=== PATIENT | female | born 1965 | race Caucasian/White ===

== ENCOUNTER 2019-07-09 00:55 | Outpatient (CLI) | payer BC, SELFPAY ==
--- NOTE | 2019-07-09 09:48 | DI.MAMMO_ITS ---
SYMPTOMS/DIAGNOSIS: SCREENING, Z12.31 MAMMOGRAM: Mammograms were interpreted according to the usual protocol including computer analysis with CAD system, tomosynthesis and C view imaging. The breasts are of moderate density with fairly symmetrical distribution of fibroglandular tissue. No dominant mass or clumped microcalcification is identified in either breast. The current examination is compared with previous examination of May 2013 and there is a question of increased prominence of a focal area of asymmetric density projected in the lateral central portion of the left breast on CC view. Additional mammographic views of this area are requested to include CC spot compression view of the left breast. CONCLUSION: Additional mammographic views of the left breast requested as described above. Breast ultrasound may be indicated as well depending on the results of the additional mammographic views. Category 0. Breast density Category B. MQSA ASSESSMENT OF FINDINGS: Incomplete: Needs additional imaging evaluation. Category 0. Patient will receive a letter notifying them of these results. BI-RADS category B. There are scattered areas of fibroglandular density.
[2019-07-09 10:31] LABS: Anion Gap 7.6 mmol/L (3-11); BUN 13 mg/dL (7-18); CO2 29.4 mmol/L (21.0-32.0); CREATININE 0.69 mg/dL (0.55-1.02); Calcium 9.1 mg/dL (8.5-10.1); Calculated LDL 202 mg/dL; Chloride 106 mmol/L (98-107); Cholesterol 284 mg/dL (50-200); Glucose 89 mg/dL (70-100); HDL Cholesterol 63 mg/dL (40-60); Potassium 4.5 mmol/L (3.5-5.1); Sodium 143 mmol/L (136-145); Triglyceride 98 mg/dL (30-150)
[2019-07-10 10:42] LABS: HIV-1/2 Ag & Ab Screen Negative (NEGAT)
== END 2019-07-09 01:15 ==
PROVIDERS: PCP Nurse Practitioner Family; Visit Provider Nurse Practitioner Family
DX: Z12.31 Encounter for screening mammogram for malignant neoplasm of breast (principal); R92.8 Other abnormal and inconclusive findings on diagnostic imaging of breast; I10 Essential (primary) hypertension; E78.5 Hyperlipidemia, unspecified; Z11.4 Encounter for screening for human immunodeficiency virus [HIV]
CPT/HCPCS: 36415; 77063; 77067; 80048; 80061; 83721; 87389

== ENCOUNTER 2019-07-13 09:06 | Outpatient (CLI) | payer BC, SELFPAY ==
[2019-07-13 10:00] LABS: ALT 28 U/L (12-78); AST 13 U/L (15-37); Albumin 3.6 g/dL (3.4-5.0); Alkaline Phosphatase 100 U/L (46-116); Bilirubin, Direct 0.05 mg/dL (0.00-0.20); Bilirubin, Total 0.2 mg/dL (0.2-1.0); Total Protein 6.9 g/dL (6.4-8.2)
== END 2019-07-13 09:26 ==
PROVIDERS: PCP Nurse Practitioner Family; Visit Provider Nurse Practitioner Family
DX: Z51.81 Encounter for therapeutic drug level monitoring (principal); Z79.899 Other long term (current) drug therapy
CPT/HCPCS: 36415; 80076

== ENCOUNTER 2019-07-21 01:05 | Outpatient (CLI) | payer BC, SELFPAY ==
--- NOTE | 2019-07-21 09:42 | DI.COMBO_ITS ---
SYMPTOM/DIAGNOSIS: F/U MAMMO, ? INCREASED PROMINENCE ASYMMETRIC DENSITY LATERAL CENTRAL PORTION ADDITIONAL MAMMOGRAPHIC VIEWS LEFT BREAST, LEFT BREAST ULTRASOUND 07/21 Additional images are interpreted according to the usual protocol including tomosynthesis and 2D imaging. Additional mammographic views of the left breast and left breast ultrasound are interpreted in conjunction. These examinations were obtained to evaluate questionable area of asymmetric density seen in the left breast on recent mammogram. Additional mammographic views failed to show a discrete mass. Breast ultrasound shows no evidence of a mass or cyst. CONCLUSION: No specific evidence of malignancy at this time. Follow up unilateral left breast mammogram requested in 6 months, Category 3. Breast density category B. MQSA ASSESSMENT OF FINDINGS: Probably benign. Six month follow-up recommended. Category 3. Patient will receive a letter notifying them of these results. BI-RADS category B. There are scattered areas of fibroglandular density.
== END 2019-07-21 01:25 ==
PROVIDERS: PCP Nurse Practitioner Family; Visit Provider Nurse Practitioner Family
DX: Z12.31 Encounter for screening mammogram for malignant neoplasm of breast (principal); R92.8 Other abnormal and inconclusive findings on diagnostic imaging of breast; N64.59 Other signs and symptoms in breast
CPT/HCPCS: 76642; 77063; 77067

== ENCOUNTER 2019-09-28 16:27 | Outpatient (CLI) | payer BC, SELFPAY ==
--- NOTE | 2019-09-28 11:15 | DI.RAD_ITS ---
EXAM: XR CHEST 2V PA LATERAL INDICATION: COUGH, ? PNEUMONIA. COMPARISON: CHEST 2 VIEWS PA,LAT from 07/15/2017 TECHNIQUE: 2D digital imaging was performed. FINDINGS: Heart size and pulmonary vasculature are within normal limits. The lungs are clear. No effusions or pneumothoraces are identified. The bones are intact. IMPRESSION: No acute pulmonary process.
== END 2019-09-28 16:47 ==
PROVIDERS: PCP Nurse Practitioner Family; Visit Provider Nurse Practitioner Family
DX: R05 Cough (principal)
CPT/HCPCS: 71046

== ENCOUNTER 2019-12-21 16:05 | Outpatient (CLI) | payer BC, SELFPAY ==
--- NOTE | 2019-12-21 15:19 | DI.RAD_ITS ---
EXAM: XR THUMB LT CLINICAL HISTORY: eval persistent L thumb pain TECHNIQUE: COMPARISON: No exams were available for comparison FINDINGS: Three views were obtained. There is mild thinning of the cartilaginous joint spaces at the greater m ultangular 1st metacarpal, 1st MCP, and IP joints. Mild marginal osteophyte formation noted most pro minent at the greater multangular 1st metacarpal joint. IMPRESSION: Mild degenerative changes, most prominent at greater multangular 1st metacarpal joint.
== END 2019-12-21 16:25 ==
PROVIDERS: PCP Nurse Practitioner Family; Visit Provider Student in an Organized Health Care Education/Training Program
DX: M79.645 Pain in left finger(s) (principal); M19.042 Primary osteoarthritis, left hand
CPT/HCPCS: 73140

== ENCOUNTER 2020-01-11 08:10 | Day surgery (SDC) | payer BC, SELFPAY ==
--- NOTE | 2020-01-11 07:05 | W.COLOREPORT ---
Date of service: 01/11/20 Time of Service: 09:19 Colonoscopy Report Date of procedure: 01/11/20 Pre-op diagnosis general: Colon Cancer Screening and Family history of colon cancer Procedure: Colonoscopy with polypectomy Surgeon: Halie Holcomb Anesthesia proc note operative: other (General/ ASA2 /Serenity Olvera, FATOUMATA) Estimated blood loss (mL): 3 Pathology: other (rectal polyps x4, sigmoid polyp) Complications: None Disposition: same day Indications: 54 y/o female with history of asthma and HTN presents for colonoscopy screening pre-op. She reports having a Colonoscopy a number of years ago, however she does not recall when or where this was performed. She denies a family history of colon cancer. She denies any changes in bowel habits including bloody or black tarry stools, abdominal pain, diarrhea or constipation Prep: Miralax/Dulcolax Procedure Start Time: :19 Procedure End Time: 09:58 Retraction Time: 25 minutes Findings: 4 small hyperplastic polyps in the rectum 1 small polyp in the sigmoid colon Thick mucus and bile/stool throughout the transverse and ascending colon Procedure Description: After informed consent was obtained the patient was taken to the procedure room and placed in a left decubitous position. Monitors were applied and a time out was done. The patients name, date of , procedure, allergies to medications and metal in their body was reviewed. The patient was then sedated. Once sedated and comfortable a rectal exam was done. External exam was normal. Internal exam revealed a normal sphincter tone and no palpable masses. The scope was then introduced and retro-flexed. No internal hemorrhoids were identified. The scope was then advanced to the cecum without difficulty. The TI and appendiceal orifice were identified. The prep was marginal in the ascending and trasnverse colon. There was a lot of thick bile and stool on the mucosa. 1.5 L of saline were used to irrigate the gomez. The scope was then slowly retracted over 25 minutes back into the rectum. Polyps were removed with cold forceps in the rectum x4 and in the sigmoid colon x1. There were no diverticula. The scope was removed and the patient was woken up and taken back to Same day surgery in stable condition. The patient tolerated the procedure well and there were no immediate complications. Follow up: The patient should follow up in 3-5 years unless they develop changes in bowel habits or other new gastrointestinal complaints.
--- NOTE | 2020-01-11 07:07 | PDOC.DSDIS_ITS ---
Discharge Plan Disposition Patient Disposition: HOME Condition: Good Discharge Details Reason For Visit: Colon CAncer Screening/ Family History of colon ca Attending Provider: Halie Holcomb Primary Care Provider: Ashanti Thakkar Home Meds and New Rx's Prescriptions: Continued atorvastatin 40 mg tablet 40 mg PO DAILY Qty: 90 RF: 3 albuterol sulfate [ProAir HFA] 90 mcg/actuation HFA aerosol inhaler 1 - 2 puff Inhalation Q4-6H PRN Qty: 1 RF: 3 venlafaxine 150 mg capsule,extended release 24hr 150 mg PO DAILY Qty: 90 RF: 3 trazodone 100 mg tablet 150 mg PO HS Qty: 135 RF: 3 hydrochlorothiazide 25 mg tablet 25 mg PO QAM Qty: 90 RF: 3 lisinopril 5 mg tablet 5 mg PO DAILY Qty: 90 RF: 3 ibuprofen 600 MG tablet 600 mg PO QID PRN (Reason: Pain) Qty: 15 RF: 0 Discontinued polyethylene glycol 3350 17 gram/dose powder 238 g PO ONCE Qty: 238 RF: 0 bisacodyl [Dulcolax (bisacodyl)] 5 mg tablet,delayed release (DR/EC) 5 mg PO ONCE Qty: 4 RF: 0 Discharge Instructions Additional Instructions: Findings: polyps x5 Follow up: 3-5 years Please call if you develop: fevers >101.5 Nausea or Vomiting Abdominal pain that is not transient DAY SURGERY UNIT POST ENDOSCOPY INSTRUCTIONS 1. Because there will be medication in your system for the next 24 hours, you may feel a little sleepy. Your coordination will be affected. Therefore: a. Do not drive or operate dangerous equipment for 24 hours. b. Do not drink alcohol beverages for 24 hours (not even beer). c. Plan to go home and rest for the day. 2. Generally there are no restrictions on your activity after a day or so has gone by, but you may feel a bit fatigued for a few days. 3 After you arrive home you may have a light meal and return to a normal diet as you can tolerate it without feeling sick to your stomach. 4. After surgery, you may feel pain or discomfort. This should be only transient, but if it persists please contact your doctor. 5. If there are any questions regarding the findings of your procedure, please feel free to contact your doctor. 6. If you are unable to contact your doctor with a problem, contact the [facility] at [phone]. 8. Continue all your regular medications unless directed otherwise. I understand the above instructions and have no questions. Signature of Patient or Responsible Adult Escort Date/Time Name of Responsible Adult Escort Signature of Nurse Date/Time Activity:: Activity as Tolerated Diet:: As Tolerated Discharge Orders Discharge Orders: Discharge Order (Routine); Ordered 01/11/20 Ordered By: Halie Holcomb
[2020-01-11 08:22] VITALS: BP 122/84; PULSE 105; RESP 16; TEMP 36.6; O2SAT 95
[2020-01-11] MEDS: Lactated Ringers 1,000 ML 80 ML IV (08:43)
--- NOTE | 2020-01-11 09:20 | BOWEL_PTH ---
PATIENT: Yanet Angel LOC: [facility] U#:[id number] AGE/SX: 54/F ROOM: RE01/11/[address]: Halie Holcomb MD : [id number] BED: DIS: 01/11/2020 SPEC #: [id number] RECD: 01/11/20 12:40 STATUS: EDGARDO REQ #: [id number] EMILIA: 01/11/20 09:[address]: Halie Holcomb DEPT: Surgical Specimen RECD BY: Sayra Ojeda ENTERED: 01/11/20 12:41 SP TYPE: Bowel OTHR DR: Ashanti Thakkar APRN Tissues: 1 - BIOPSY BOWEL 2 - BIOPSY BOWEL Procedures: GROSS AND MICRO LEVEL 4 Comments: [id number]
[2020-01-11 10:31] VITALS: BP 124/85; PULSE 78; RESP 16; TEMP 36.2; O2SAT 100
== END 2020-01-11 10:50 | disposition home or self-care (01) ==
LOC: SUR 08:11
PROVIDERS: PCP Nurse Practitioner Family; Visit Provider Surgery
PROC: 0DJD8ZZ Inspection of Lower Intestinal Tract, Via Natural or Artificial Opening Endoscopic (ICD-10-PCS; CPT 45378; principal; 2020-01-11 09:00)
DX: Z12.11 Encounter for screening for malignant neoplasm of colon (principal); K63.5 Polyp of colon; K62.1 Rectal polyp; I10 Essential (primary) hypertension; F17.210 Nicotine dependence, cigarettes, uncomplicated
CPT/HCPCS: 45380; 88305; J2704

== ENCOUNTER 2020-02-12 02:15 | Outpatient (CLI) | payer BC, SELFPAY ==
--- NOTE | 2020-02-12 09:00 | DI.MAMMO_ITS ---
EXAM: MG MAMMO DIAGNOSTIC UNI CLINICAL HISTORY: 6 MO F/U, F/U ABNL MAMMO. TECHNIQUE: Craniocaudal and mediolateral oblique Full Field Digital Mammography views of the left br east with Computer Aided Diagnosis followed. COMPARISON: Priors available for comparison. FINDINGS: Mammography/Tomosynthesis: Masses/Architectural Distortion: None seen. Microcalcifictions: No suspicious pleomorphic-type are seen. Skin Thickening/Nipple Retraction: None. IMPRESSION: 1. No evidence of malignancy is noted. 2. Unless there is more urgent need, follow-up screening mammography is recommended, as per [employer] guidelines. BI-RADS Cat 1 - Negative Breast Density - Category B - Scattered areas of fibroglandular density The findings were discussed with the patient on the date of the examination. A negative radiographic report should not delay biopsy if a dominant or clinically suspicious mass is present. Up to ten percent of cancers are not identified on mammography. A negative report may reinforce clinical impression. Adenosis and dense breasts may obscure an underlying neoplasm. False positive reports average 6 to 10%. Patient will receive a letter notifying them of these results.
== END 2020-02-12 02:35 ==
PROVIDERS: PCP Nurse Practitioner Family; Visit Provider Nurse Practitioner Family
DX: Z12.31 Encounter for screening mammogram for malignant neoplasm of breast (principal); R92.8 Other abnormal and inconclusive findings on diagnostic imaging of breast; N64.59 Other signs and symptoms in breast
CPT/HCPCS: 77061; 77065; G0279

== ENCOUNTER 2020-05-06 07:57 | Outpatient (CLI) | payer BC, SELFPAY ==
[2020-05-07 14:09] LABS: COVID-19 RT-PCR UVMMC Result Negative (Negative)
== END 2020-05-06 08:17 ==
PROVIDERS: PCP Nurse Practitioner Family; Visit Provider Student in an Organized Health Care Education/Training Program
DX: Z11.59 Encounter for screening for other viral diseases (principal); Z01.818 Encounter for other preprocedural examination
CPT/HCPCS: U0003

== ENCOUNTER 2020-05-10 12:34 | Day surgery (SDC) | payer BC, SELFPAY ==
[2020-05-10] VITALS (7 sets, daily range): BP systolic 117–165; BP diastolic 70–96; PULSE 77–98; RESP 10–18; TEMP 36.3–36.8; O2SAT 96–98
--- NOTE | 2020-05-10 11:05 | W.PM.DSUDISC ---
Discharge Plan Disposition Patient Disposition: HOME Condition: Good Discharge Details Reason For Visit: left CMC joint arthritis Attending Provider: Roni Valdes Primary Care Provider: Ashanti Thakkar Home Meds and New Rx's Prescriptions: New hydrocodone-acetaminophen 5-325 mg tablet 1 tab PO Q6H PRN (Reason: severe post-operative pain) Qty: 6 RF: 0 acetaminophen 500 mg tablet 500 mg PO Q6H PRN (Reason: pain) Qty: 60 RF: 2 ibuprofen 600 mg tablet 600 mg PO TID PRN (Reason: pain) Qty: 60 RF: 2 Continued atorvastatin 40 mg tablet 40 mg PO DAILY Qty: 90 RF: 3 albuterol sulfate [ProAir HFA] 90 mcg/actuation HFA aerosol inhaler 1 - 2 puff Inhalation Q4-6H PRN Qty: 1 RF: 3 venlafaxine 150 mg capsule,extended release 24hr 150 mg PO DAILY Qty: 90 RF: 3 trazodone 100 mg tablet 150 mg PO HS Qty: 135 RF: 3 hydrochlorothiazide 25 mg tablet 25 mg PO QAM Qty: 90 RF: 3 lisinopril 5 mg tablet 5 mg PO DAILY Qty: 90 RF: 3 ibuprofen 600 MG tablet 600 mg PO QID PRN (Reason: Pain) Qty: 15 RF: 0 Discharge Instructions Additional Instructions: Thumb CMC Discharge Instructions Activity: You should keep the hand/thumb elevated as much as possible for the first few days. You may use the other fingers as tolerated but avoid trying to do too much too soon. You may perform light activities with the splint in place. Dressing/Cast: Your splint should stay in place at all times. Do NOT get it wet. You may loosen the KEV wrap if you feel it is too tight and then rewrap more loosely. Medications: - You should take Tylenol and Ibuprofen for baseline pain control. - You have Oxycodone for breakthrough pain. - You may apply ice over the thumb. Follow-up: 10-14 days Referrals: Roni Valdes MD [ [facility] STAFF PHYSICIAN] - Equipment/Supplies: Splint Activity:: Elevate Remove Dressings/Wound Care:: Do Not Remove Shower/Bathe:: Cover Diet:: As Tolerated Discharge Orders Discharge Orders: Discharge Order (Routine); Ordered 05/10/20 Ordered By: Rupa Vyas DS: Diagnosis Discharge Diagnosis (1) Arthritis of carpometacarpal (CMC) joint of left thumb: Status: Acute
--- NOTE | 2020-05-10 12:00 | DI.RAD_ITS ---
EXAM: XR WRIST LT LIMITED CLINICAL HISTORY: Arthritis of carpometacarpal (CMC) joint of left t TECHNIQUE: 2D and realtime digital imaging was performed. CONTRAST MATERIAL: Refer to procedure report. COMPARISON: No exams were available for comparison FINDINGS: Fluoroscopy was provided for Dr. Valdes during the performance of a 1st CMC evaluation. Please re zainab to the procedure report for complete details. Fluoro time: 0.06 seconds IMPRESSION: RADIATION DOSE DELIVERED:
[2020-05-10] MEDS: Lactated Ringers 1,000 ML 80 ML IV (12:56)
[2020-05-10] MEDS: ceFAZolin 2 GM/50 ML BAG IVPB (13:28)
[2020-05-10] MEDS: oxyCODONE 5 MG TAB PO (15:43)
--- NOTE | 2020-05-10 20:04 | W.PM.OP ---
Date of service: 05/10/20 Time of Service: 14:04 Operative Note Operative Note DATE OF PROCEDURE: 05/10/20 PRE-OP DIAGNOSIS: Left Thumb CMC Arthritis POST-OP DIAGNOSIS: same PROCEDURE: Left trapezial resection arthroplasty with suture suspensionplasty SURGEON: Roni Valdes ANESTHESIA: GETTati ESTIMATED BLOOD LOSS: 0 PATHOLOGY: none sent TOURNIQUET TIME: 45 COMPLICATIONS: None Patient was transported to: PACU Patient's condition: stable Indications: Yanet is a 54-year old female who has had symptoms of thumb CMC arthritis with pain and decreased mobility. Nonoperative treatment options had been trialed. Given their failure, I offered operative intervention. I reviewed the technical details. I reviewed the risk of the procedure to include bleeding, infection, pain, stiffness, instability, subsidence, damage to neighboring arteries, damage to the superficial radial nerve, and weakness. Despite these risks, the patient elected to proceed. Findings: There is notable arthrosis between the trapezium and the first metacarpal. There are large osteophytes around the entirety of the trapezium. Procedure Description: Yanet was greeted in the preoperative holding area. Name and surgical site were confirmed. The history and physical was completed. The consent was reviewed the patient and signed. She was taken back to the operating room. The patient was administered a general anesthetic. The left was then prepped with ChloraPrep and draped in a standard fashion after a nonsterile tourniquet was placed high up onto the arm. Prophylactic antibiotics in the form of cefazolin were administered. A timeout was performed for safe surgery. The surgical site was drawn on the skin overlying the dorsal radial border of the wrist in the course of the first compartment tendons. The planned surgical field was anesthetized with 0.25% bupivacaine with epinephrine. The limb was exsanguinated and the tourniquet was inflated where it stayed for 45 minutes. A 3 cm incision was made longitudinally over the radial wrist from the level of the radial styloid to just past the base of the first metacarpal. The skin was incised only. The deep tissue and subcutaneous fat was dissected with a tenotomy scissors trying to protect branches of the superficial radial nerve. Any branches that were identified were retracted out of the way. The first compartment extensor tendons were then identified. The first extensor compartment was released with scissors. Any overlying structures were cleared and retracted away to make sure to avoid branches of the superficial radial nerve. The interval between APL and EPB was identified. The base of the first metacarpal was palpated. Gentle dissection was carried out to release attachments of the deep branch of the radial artery from the trapezium. A needle was placed into the joint between the first metacarpal and the trapezium. A single x-ray was used to confirm appropriate positioning. The capsule of the trapezium was then incised. The radial border of the bone was identified. Soft tissues around trapezium were dissected bluntly to allow relaxation of vital arterial structures traversing the trapezium. Using a Fairview blade the capsule was elevated off the trapezium in a subperiosteal fashion. Once it appeared to have all the capsular attachments released, the tap was removed. The trapezium was then removed using a rongeur. The wound was inspected to make sure all portions of the trapezium were removed. The wound was then thoroughly irrigated. Using a #2 FiberWire, I then performed a suture suspensionplasty. This was done by incorporating capsule and attachments of the APL at the base of the first metacarpal and creating a sling connected to the deep flexor carpi radialis tendon seen traversing deep within the wound towards the second metacarpal. This was done twice to create a crossing network of #2 suture. This was then tied making sure not to over tighten and hourglass the tendons. This provided support to the first metacarpal to prevent any excessive subsidence. The tourniquet was then released. There is no significant bleeding. The capsule of the trapezium was then reapproximated with a 2-0 Vicryl. The skin was closed with 3-0 Vicryl followed by 4-0 Monocryl. The hand was dressed with 4 x 4's, web roll, thumb spica splint. All counts were correct. Patient was transferred back to PACU in a stable condition.
== END 2020-05-10 16:20 | disposition home or self-care (01) ==
LOC: SUR 12:35
PROVIDERS: PCP Nurse Practitioner Family; Visit Provider Student in an Organized Health Care Education/Training Program
PROC: (CPT 25447; principal; 2020-05-10 14:15)
DX: M18.12 Unilateral primary osteoarthritis of first carpometacarpal joint, left hand (principal); M25.542 Pain in joints of left hand; I10 Essential (primary) hypertension; F17.210 Nicotine dependence, cigarettes, uncomplicated
CPT/HCPCS: 25447; 73100; J0131; J0690; J1100; J1885; J2001; J2405

== ENCOUNTER 2020-06-27 02:25 | Outpatient (CLI) | payer BC, SELFPAY ==
[2020-06-27 11:34] LABS: Anion Gap 13.3 mmol/L (3-11); BUN 14 mg/dL (7-18); CO2 23.7 mmol/L (21.0-32.0); CREATININE 0.69 mg/dL (0.55-1.02); Calcium 9.2 mg/dL (8.5-10.1); Calculated LDL 93 mg/dL (<100); Chloride 104 mmol/L (98-107); Cholesterol 188 mg/dL (<200); Glucose 88 mg/dL (74-106); HDL Cholesterol 69 mg/dL (40-60); Potassium 4.2 mmol/L (3.5-5.1); Sodium 141 mmol/L (136-145); Triglyceride 133 mg/dL (<150)
== END 2020-06-27 02:45 ==
PROVIDERS: PCP Nurse Practitioner Family; Visit Provider Nurse Practitioner Family
DX: E78.5 Hyperlipidemia, unspecified (principal); I10 Essential (primary) hypertension
CPT/HCPCS: 36415; 80048; 80061

== ENCOUNTER 2020-07-29 02:45 | Outpatient (CLI) | payer BC, SELFPAY ==
[2020-08-01 08:17] LABS: SARS-CoV-2 RNA Undetected (Undetected); SARS-CoV-2 Specimen Source Nasopharynx
== END 2020-07-29 03:05 ==
PROVIDERS: PCP Nurse Practitioner Family; Visit Provider Nurse Practitioner Family
DX: Z11.59 Encounter for screening for other viral diseases (principal)
CPT/HCPCS: U0003

== ENCOUNTER 2020-08-05 10:08 | Outpatient (CLI) | payer BC, SELFPAY ==
--- NOTE | 2020-08-05 11:41 | DI.RAD_ITS ---
EXAM: XR SHOULDER LT COMPLETE 2+V CLINICAL HISTORY: L shoulder pain. TECHNIQUE: 2D digital imaging was performed. COMPARISON: No exams were available for comparison FINDINGS: BONES: No acute fracture is present. No bony destructive lesion is seen. JOINTS: No dislocation present. Mild degenerative changes are seen at both the acromioclavicular join t and the glenohumeral joint. SOFT TISSUE: Normal. IMPRESSION: Mild degenerative changes of the AC and glenohumeral joints. DATA REPOSITORY: RADIATION DOSE DELIVERED:
== END 2020-08-05 10:28 ==
PROVIDERS: PCP Nurse Practitioner Family; Visit Provider Physician Assistant
DX: M19.012 Primary osteoarthritis, left shoulder (principal)
CPT/HCPCS: 73030

== ENCOUNTER 2020-11-01 00:59 | Outpatient (CLI) | payer BC, SELFPAY ==
--- NOTE | 2020-11-01 08:45 | DI.MRI_ITS ---
CLINICAL HISTORY: L SHOULDER PAIN,TENDONITIS LT ROTATOR CUFF,M75.82. TECHNIQUE: Multiplanar multisequence MRI was performed. COMPARISON: None FINDINGS: MR examination of the shoulder was performed according to the usual protocol. There is no significant effusion of the glenohumeral joint. No fluid in the subacromial subdeltoid bu rsa. Bones and labrum: There moderate osteophytes of the acromioclavicular joint and and abnormal signal i n the clavicle and acromion adjacent to the joint. There is mild impingement superior aspect of supr aspinatus. There are mild marginal osteophytes of the inferior glenoid. No other significant bony abnormality s een. Glenoid labrum shows question contour deformity superiorly, tear not excluded. Rotator cuff: Supraspinatus shows mildly abnormal signal from myotendinous junction region to its in sertion consistent with a tendinosis. Possible minimal linear tear anteriorly, intrasubstance. Tomás chment to the humerus appears intact. Infraspinatus and subscapularis show mildly abnormal signal near their humeral attachments consistent with tendinosis. No tear identified. Teres minor is unremarkable in appearance. Rotator interval structures are unremarkable with no evidence of a tear. Biceps tendon and anchor: Biceps tendon and anchor show normal signal and no evidence of a tear. Remedios ps tendon is normally positioned in the bicipital groove. IMPRESSION: Acromioclavicular joint hypertrophic changes with impingement on superior aspect of supraspinatus teresa tendinous junction region and associated supraspinatus tendinosis. Possible minimal linear intrasubs tance tearing of myotendinous junction region of the supraspinatus. Mild subscapularis and infraspinatus tendinosis without evidence of a tear. Question superior labral tear. DATA REPOSITORY:
== END 2020-11-01 01:19 ==
PROVIDERS: PCP Nurse Practitioner Family; Visit Provider Student in an Organized Health Care Education/Training Program
DX: M75.82 Other shoulder lesions, left shoulder (principal)
CPT/HCPCS: 73221

== ENCOUNTER 2021-02-01 09:36 | Outpatient (CLI) | payer BC, SELFPAY ==
[2021-02-02 13:21] LABS: COVID-19 RT-PCR UVMMC Result Positive (Negative)
== END 2021-02-01 09:37 | disposition home or self-care (01) ==
LOC: LBO 09:37
PROVIDERS: PCP Nurse Practitioner Family; Visit Provider Nurse Practitioner Family
DX: Z20.822 Contact with and (suspected) exposure to COVID-19 (principal)
CPT/HCPCS: U0003

== ENCOUNTER 2021-02-06 03:27 | Outpatient (CLI) | payer BC, SELFPAY ==
[2021-02-06 15:01] VITALS: BP 110/70; PULSE 74; RESP 16; TEMP 37; O2SAT 95
[2021-02-06] MEDS: Normal Saline 500 ML 30 ML IV (15:10)
[2021-02-06] MEDS: Normal Saline Flush 10 ML SYR IVP (15:10)
[2021-02-06 15:12] VITALS: BP 127/85; PULSE 92; RESP 14; TEMP 36.1; O2SAT 96
[2021-02-06 15:23] VITALS: BP 129/82; PULSE 90; RESP 20; TEMP 36.6; O2SAT 95
[2021-02-06 15:53] VITALS: BP 108/71; PULSE 77; RESP 16; TEMP 36.7; O2SAT 96
[2021-02-06 16:27] VITALS: BP 128/83; PULSE 88; RESP 18; TEMP 36.5; O2SAT 98
== END 2021-02-06 03:28 | disposition home or self-care (01) ==
PROVIDERS: PCP Nurse Practitioner Family; Visit Provider Family Medicine
DX: U07.1 COVID-19 (principal)
CPT/HCPCS: 96365

== ENCOUNTER 2021-03-29 08:57 | Day surgery (SDC) | payer BC, SELFPAY ==
[2021-03-29] VITALS (10 sets, daily range): BP systolic 104–136; BP diastolic 62–87; PULSE 82–107; RESP 13–21; TEMP 36–36.6; O2SAT 92–97; BMI 26.2
[2021-03-29] MEDS: Lactated Ringers 1,000 ML 80 ML IV (09:34)
--- NOTE | 2021-03-29 09:34 | W.ANESPRE ---
General Info Date of Service Date Performed: 03/29/21 Height: 5 ft 4.5 in Weight: 70.5 kg Body Mass Index (BMI): 26.2 Surgical Procedure: Operation Date: 03/29/21 13:10 Proposed Procedures Side Surgeon p Shoulder Arthroscopy with debridement, exc distal clavicle Left Roni Valdes MD s Shoulder Bicep Tenodesis Left Roni Valdes MD s Shoulder Distal Clavicle Roni Valdes MD Meds Allergies and Home Medications Allergies Allergy/AdvReac Type Severity Reaction Status Date / Time bupropion HCl AdvReac Intermediate Agitation Unverified 03/29/21 09:09 [From Wellbutrin] Home Medication Medication Instructions Recorded albuterol sulfate 90 mcg/actuation 1 - 2 puff INHALATION Q4-6H PRN #1 04/24/19 aerosol inhaler inhaler acetaminophen 500 mg PO Q6H PRN #60 tab 05/10/20 ibuprofen 600 mg PO TID PRN #60 tab 05/10/20 trazodone 100 mg tablet 150 mg PO HS #135 tab-cap 05/23/20 venlafaxine 150 mg 150 mg PO DAILY #90 tab-cap 05/23/20 capsule,extended release 24 hr atorvastatin 40 mg tablet 40 mg PO DAILY #90 tab-cap 06/17/20 hydrochlorothiazide 25 mg tablet 25 mg PO QAM #90 tab-cap 07/25/20 lisinopril 10 mg PO DAILY 02/06/21 Current Visit Medications: Current Medications Generic Name Dose Route Start Last Admin Trade Name Freq PRN Reason Stop Dose Admin Ringer's Solution 1,000 mls @ 80 mls/hr 03/29/21 06:00 IV 04/27/21 23:59 INFUSION MANUEL Cefazolin Sodium/Dextrose 2 gm in 50 mls @ 100 mls/hr 03/29/21 06:00 Ancef Duplex IVPB 04/27/21 23:59 PREOP MANUEL IV Miscellaneous Supplies 1 each 03/29/21 06:00 Iv Access IV 04/27/21 23:59 DIRECTED MANUEL Sodium Chloride 0 ml 03/29/21 06:00 Normal Saline Flush 10 Ml Syr IV 04/27/21 23:59 PRN PRN Sodium Chloride 0 ml 03/29/21 06:00 Normal Saline 10 Ml Vial IJ 04/27/21 23:59 DIRECTED PRN Sterile Water 0 ml 03/29/21 06:00 Water,Injection,Sterile 10 Ml Vial IJ 04/27/21 23:59 DIRECTED PRN PFSH Active Problems Active Problems: Problem Status Onset Code De Quervain's tenosynovitis, left M65.4 Tendonitis of left rotator cuff M75.82 Arthritis of left acromioclavicular joint M19.012 Superior labrum vhguspfh-wd-rfgjunwyy (SLAP) tear of left shoulder S43.432A Arthritis of carpometacarpal (CMC) joint of left thumb M18.12 Hyperplastic colon polyp K63.5 Asthma J45.909 Anxiety and depression F41.9, F32.9 Essential hypertension 08/31/16 I10 Other and unspecified hyperlipidemia 09/28/16 E78.5 Insomnia 08/31/16 G47.00 Tobacco use disorder F17.200 Medical History Medical History Anxiety and depression Asthma Essential hypertension (08/31/16) History of COVID-19 02/01/21 Hyperplastic colon polyp Insomnia (08/31/16) Other and unspecified hyperlipidemia (09/28/16) 07/2019 labs: LDL >190 --> started high intensity statin Tobacco use disorder Surgical History Surgical History Appendectomy (~1990) Arthritis of carpometacarpal (CMC) joint of left thumb Injected: 12/21/2019 Trapezial Resection: 05/10/2020 section x3 in 1986, 1989, & 1992 at [place] [facility] Cholecystectomy Endometriosis surgery x2 Dr. Perrin Hysterectomy, Total Abdominal (06/02/08) Dr. Nisa Orellana. For chronic pelvic pain & dysmenorrhea. Tobacco Smoking/Tobacco Use Status: Current every day Tobacco Type: cigarettes Smoking packs per day: 1 Smoking cigarettes per day: 20.0 Alcohol Alcohol Intake: current Alcohol intake frequency: 0-2 drinks per day Alcohol type: wine Substance Use Substance use: Never Substance use type: does not use Prental History History 3 Para Hx # Term Pregnancies 3 Multiple births Hx # Pregnancies Ectopic pregnancies AB induced Hx Number of Living Children 3 AB spontaneous Vital Signs and Lab Results Vital Signs Most Recent Vital Signs in EMR: Most Recent Vital Signs Temp Pulse Resp BP Pulse Ox 36.6 C 107 H 16 126/75 97 03/29/21 09:12 03/29/21 09:12 03/29/21 09:12 03/29/21 09:12 03/29/21 09:12 Lab Results Blood Type / Crossmatch: No Data to Display Complete Blood Count: White Blood Count 5.67 k/cumm (4.4-10.8) 07/15/17 16:20 07/15/17 Red Blood Count 4.83 m/cumm (4.00-5.20) 07/15/17 16:20 07/15/17 Hemoglobin 15.6 g/dL (12.0-15.5) H 07/15/17 16:20 07/15/17 Hematocrit 47.3 % (36.0-46.0) H 07/15/17 16:20 07/15/17 Platelet Count 233 x1000/uL (130-400) 07/15/17 16:20 07/15/17 Complete Metabolic Panel: Sodium Level 141 mmol/L (136-145) 06/27/20 10:06/27/20 Potassium Level 4.2 mmol/L (3.5-5.1) 06/27/20 10:06/27/20 Chloride Level 104 mmol/L (98-107) 06/27/20 10:06/27/20 Carbon Dioxide Level 23.7 mmol/L (21.0-32.0) 06/27/20 10:06/27/20 Blood Urea Nitrogen 14 mg/dL (7-18) 06/27/20 10:06/27/20 Creatinine 0.69 mg/dL (0.55-1.02) 06/27/20 10:06/27/20 Magnesium Level 2.0 mg/dL (1.8-2.4) 07/15/17 16:20 07/15/17 Calcium Level 9.2 mg/dL (8.5-10.1) 06/27/20 10:06/27/20 Albumin 3.6 g/dL (3.4-5.0) 07/13/19 09:19 07/13/19 Glucose Level 88 mg/dL (74-106) 06/27/20 10:28 06/27/20 Liver Function Panel: Alanine Aminotransferase (ALT/SGPT) 28 U/L (12-78) 07/13/19 09:19 07/13/19 Aspartate Amino Transf (AST/SGOT) 13 U/L (15-37) L 07/13/19 09:19 07/13/19 Coagulation Panel: D-Dimer 373 ng/mlFEU (0-500) 07/15/17 16:20 07/15/17 Cardiac Panel: Troponin I < 0.02 ng/mL (0.00-0.06) 07/15/17 16:20 07/15/17 Arterial Blood Gas: No Data to Display Venous Blood Gas: No Data to Display Pancreas Panel: Amylase Level 25 U/L (25-115) 10/12/13 13:33 10/12/13 Lipase 73 U/L (73-393) 10/12/13 13:33 10/12/13 Thyroid Panel: Thyroid Stimulating Hormone (TSH) 1.49 uUIU/mL (0.358-3.74) 12/27/17 15:15 12/27/17 Infectious Disease: Coronavirus (COVID-19)(PCR) Positive (Negative) A* 02/01/21 10:59 02/01/21 HIV (1&2) Ag and Ab, 4th Generation Negative (NEGAT) 07/09/19 09:07 07/09/19 Hepatitis B Surface Antigen Negative (Negative) 10/14/13 14:47 10/14/13 Blood Cultures: No Data to Display Toxicology Panel: Urine Methadone Screen neg 03/19/18 15:30 03/19/18 Panel: No Data to Display Anesthesia Assessment and Plan Anesthesia History Personal History: No History of Anesthesia Complications Family History: No Family History of Anesthesia Complications Exercise Tolerance Exercise Tolerance: Metabolic Equivalents>4 Pertinent Negatives Pertinent Negatives: No Symptoms of GERD, No Major Cardiovascular Symptoms or Complaints, No Major Pulmonary Symptoms or Complaints and No History of CVA/TIA Cardiac & Pulmonary Exam Cardiac Exam: Normal S1/S2 Heart Sounds Pulmonary Exam: Clear Bilateral Breath Sounds Airway Exam Known Difficult Airway: No Mallampati Class: 1 Mouth Opening: Normal (> 3cm) Thyromental Distance: Greater than 3 cm Neck Range of Motion: Full ROM Neck Circumference: Normal Teeth Condition: Normal Dentition and Loose or Chipped (#21 chipped) ASA Classification ASA Score: ASA 2 ASA Emergency: No NPO Status NPO Status: NPO Clears >2 hours, Solids >8 hours Status Status: History of Hysterectomy Anesthesia Plan Anesthesia Technique: General Anesthesia Airway Planned: Endotracheal Tube Pain Management: Surgeon and patient request nerve block Monitors Used: Standard Monitors
--- NOTE | 2021-03-29 12:01 | W.PM.DSUDISC ---
Discharge Plan Disposition Patient Disposition: HOME Condition: Good Discharge Details Reason For Visit: Left shoulder arthroscopy Attending Provider: Roni Valdes Primary Care Provider: Ashanti Thakkar Home Meds and New Rx's Prescriptions: New oxycodone 5 mg capsule 5 mg PO Q4H PRNQty: 14 RF: 0 ibuprofen 600 mg tablet 600 mg PO TID PRN (Reason: pain) Qty: 30 RF: 0 acetaminophen 500 mg capsule 1,000 mg PO Q8H PRN PRNQty: 90 RF: 0 Continued atorvastatin 40 mg tablet 40 mg PO DAILY Qty: 90 RF: 3 albuterol sulfate [ProAir HFA] 90 mcg/actuation HFA aerosol inhaler 1 - 2 puff Inhalation Q4-6H PRN Qty: 1 RF: 3 trazodone 100 mg tablet 150 mg PO HS Qty: 135 RF: 3 venlafaxine 150 mg capsule,extended release 24hr 150 mg PO DAILY Qty: 90 RF: 3 hydrochlorothiazide 25 mg tablet 25 mg PO QAM Qty: 90 RF: 3 lisinopril 5 mg tablet 10 mg PO DAILY RF: 0 Discontinued acetaminophen 500 mg tablet 500 mg PO Q6H PRN (Reason: pain) Qty: 60 RF: 2 ibuprofen 600 mg tablet 600 mg PO TID PRN (Reason: pain) Qty: 60 RF: 2 Discharge Instructions Stand Alone Forms: Lucio Amezcua w/BT Referrals: Roni Valdes MD [ [facility] STAFF PHYSICIAN] - Equipment/Supplies: Sling Activity:: Elevate Remove Dressings/Wound Care:: 72 hours Shower/Bathe:: 72 hours Diet:: As Tolerated Discharge Orders Discharge Orders: Discharge Order (Routine); Ordered 03/29/21 Ordered By: Liu Hyatt DS: Diagnosis Discharge Diagnosis (1) Tendonitis of left rotator cuff: Status: Acute (2) Arthritis of left acromioclavicular joint: Status: Acute (3) Superior labrum thpvqlxb-ju-qvcchmuyz (SLAP) tear of left shoulder: Status: Acute
[2021-03-29] MEDS: ceFAZolin 2 GM/50 ML BAG IVPB (12:25)
--- NOTE | 2021-03-29 12:56 | W.ANESNERVE ---
Nerve Block Single Injection Procedure Date and Time Date Performed: 03/29/21 Procedure Start: 12:12 Location Where Procedure Performed Procedure Location: Other (Procedure Room) Reason Performed: Postoperative Analgesia Requesting Provider: Roni Valdes Timeout Performed Timeout Performed: Yes Monitoring Used ECG, Blood Pressure, SpO2 and See EMR for corresponding vital signs Sterility Sterility: Hand Hygiene, Surgical Cap, Surgical Mask, Sterile Gloves and Chlorhexidine Sedation Given During Procedure Sedation Given (Indicate Dose Given): Versed IV (2 mg) and Ketamine IV (20mg) Patient Mental Status Patient Mental Status: Sedate with meaningful communication Nerve Block 1st Nerve Block: Laterality: Left Block Type: Interscalene Needle / Catheter Used: 80mm SonoPlex II Local Anesthetic Bolus (Indicate Dose Given): Lidocaine used for local infiltration of skin, Bupivacaine 0.5% (10 ml) and Exparel (10 ml) Additives (Indicate Dose Given): None Ultrasound: Sterile probe cover and gel used Ultrasound Image Saved?: Yes Nerve Stimulator: Not Used Paresthesia: Left (prior to injection, needle repositioned ) Paresthesia Duration: Transient Procedure Tolerated: No Complications and Patient tolerated well Procedure Outcome: Successful Performed By: Jo Ann Islas
[2021-03-29] MEDS: Bupivacaine 0.25% Pres-Free 30 ML VIAL (13:25)
[2021-03-29] MEDS: EPINEPHrine 30 MG/30 ML VIAL (13:25)
--- NOTE | 2021-03-29 14:20 | W.PM.OP ---
Date of service: 03/29/21 Time of Service: 13:45 Operative Note Operative Note DATE OF PROCEDURE: 03/29/21 PRE-OP DIAGNOSIS: Left Rotator Cuff Tendinitis, SLAP Tear, AC Arthritis POST-OP DIAGNOSIS: same PROCEDURE: - Mini-Open Distal Clavicle Excision - Extensive debridement of anterior and posterior glenohumeral joint and rotator cuff - Sub-pectoral biceps tenodesis - Subacromial Debridement with Acromioplasty SURGEON: Roni Valdes ACQUISITIONS LIBRARIAN: Liu Hyatt ANESTHESIA TYPE: General LMA/ETT Refer to Anesthesia Record ESTIMATED BLOOD LOSS: 0 PATHOLOGY: none sent COMPLICATIONS: None Patient was transported to: PACU Patient's condition: stable Indications: I have seen Yanet in clinic for a painful shoulder. Pathology was confirmed based on MRI and exam findings. Nonoperative measures were exhausted but disability and pain persisted. I discussed shoulder arthroscopy and procedures. I reviewed the risks of the procedures to include, but not limited to, bleeding, infection, pain, stiffness, damage to nerves or vessels, recurrence, hardware failure, blood clot. Despite these risks, the patient elected to proceed. Findings: There were signs of arthrosis of the distal clavicle; a 1cm wedge was resected A diagnostic arthroscopy was performed with the following findings: Articular Side - Glenohumeral Joint: No arthritic changes - Labrum: Tearing of the labrum from the superior glenoid - Cuff: Minimal fraying at the insertion of supraspinatus (~1mm) - Biceps: Mild inflammatory changes, no tearing Subacromial Side - Bursal: Dense, thickened bursa - Rotator Cuff: Inflamed but intact - Mild anterolateral spur Procedure Description: Yanet was greeted in the preoperative holding area where the correct side was identified and marked. The consent was reviewed with the patient and signed. The history and physical was updated. All questions were answered. She was taken back to the PACU for administration of an intrascalene nerve block. She was then taken to the operating room. The patient was placed into the supine position on the operating room table. A general anesthetic was administered. Yanet was then positioned in the beach chair position. All bony prominences were well padded. The head was placed in a foam trailhead maintenance worker in a neutral position. Prophylactic antibiotics in the form of cefazolin were administered. The left arm/shoulder was then prepped with Chloraprep and draped in a standard fashion with stockinette and shoulder drape. A timeout to confirm correct identity, side and site, procedure, allergies, anesthesia, and medical concerns was performed. The arm was placed into a pneumatic heart, SPIDER2. The distal clavicle was approached through a 2 and half centimeter incision within Morena's lines. This was made overlying the AC joint. The skin was incised sharply. The deeper tissues dissected with electrocautery. The clavipectoral fascia was identified and incised longitudinally off of the distal clavicle and onto the acromion. This was reflected subperiosteally to expose the distal clavicle and the AC joint. With adequate exposure a 1 cm bony resection was made using an oscillating saw. This is angled posteriorly to avoid any posterior impingement. Once it was fully resected, it was inspected to make sure it is of adequate width. A rasp was used to smooth the bony edges inferiorly and posteriorly primarily. A small amount of bone wax was placed on the end of the distal clavicle. The wound was thoroughly irrigated. There is no active bleeding. The clavipectoral fascia was then closed with a 0 Vicryl in a watertight fashion. The subcutaneous tissues were then reapproximated with a 2-0 Vicryl. The shoulder arthroscopy was then performed. The glenohumeral joint was injected with 20 cc of normal saline with good flow back. A standard posterior portal was made and the joint was entered atraumatically with a blunt arthroscope. Once inside we had good visualization of the structures of the glenohumeral joint. An anterior portal was established with spinal needle localization. A 6.5 mm cannula was inserted. A probe was then used to perform a diagnostic arthroscopy. There is noted to be no significant cartilage damage of the glenohumeral joint. The labrum was torn from its attachment of the superior glenoid. There were no loose bodies in the inferior pouch. The superior rotator cuff was attached to the tuberosity with very minimal amounts of fraying of the articular attachment. The biceps tendon had mild inflammatory changes but was directly attached to the torn labrum. The subscapularis was intact. Debridement of the labrum was performed. I also debrided the superior glenoid from anterior to posterior to allow some attachment of the labrum. The biceps was tenotomized using electrocautery. The insertion of the supraspinatus was lightly debrided back to healthy-appearing tissue. The biceps tenodesis was then performed. With the arm and some slight external rotation abduction pectoralis major tendon was identified. A 2 cm incision was made overlying the insertion to the humerus. Sharp dissection was carried onto the skin. Blunt dissection was carried down to the fascia the biceps musculature. This was entered with a tenotomy scissors. The biceps groove was palpable and the biceps tendon was palpable. It was withdrawn from the wound using Allis clamp and finger dissection. Once the biceps tendon was out of the arm the biceps groove was prepared using a rasp. A Mitek Lupine anchor was inserted into the biceps groove at the level of the pectoralis major insertion. This was tested to make sure had excellent fixation into the bone. Using a free needle I then placed a locking Krak?w stitch and each side of the biceps tendon using one limb from each suture at the level of the muscular tendinous junction and moving proximally. Excess tendon was then cut. Using the free suture limb I then shuttled the tendon down to the prepared surface of the humerus. It laid flat against the humerus. It was at the level of the pectoralis major tendon. The suture limbs were then tied. The wound was irrigated. The subcutaneous tissue was reapproximated with a 2-0 Vicryl. The arthroscope was then inserted into the subacromial space. The 6.5 mm cannula was placed lateral to the CA ligament. Given that there was no significant tearing of the rotator cuff I went ahead and release the CA ligament off the anterolateral corner of the acromion. A complete bursectomy is performed anteriorly, posteriorly, and laterally with electrocautery and shaver. The bursa was quite thickened and dense in this area. After a complete bursectomy, I had excellent exposure of the rotator cuff. The bursal side rotator cuff was without any significant tearing that was appreciated. There was a small anterolateral spur. Using a spinal needle a lateral portal was established. This became the viewing portal. A 4.0 mm shaver was then inserted from the posterior portal. The anterolateral corner of the acromion was then resected in plane with the posterior slope of the acromion. The scope equipment was removed from the shoulder. Excess fluid was evacuated. The portal sites were closed with 3-0 Monocryl. The wounds were dressed with Steri-Strips, 4 x 4's, ABDs, Medipore tape. A sling was applied. The patient tolerated the procedure well and was returned to the PACU in a stable condition suffering no known complication.
[2021-03-29] MEDS: Acetaminophen 325 MG TAB 650 MG PO (15:42)
--- NOTE | 2021-03-29 15:55 | W.ANESPOSTOP ---
Postoperative Evaluation Date, Time and Location Date Performed: 03/29/21 Time Performed: 15:56 Patient Location: Day Surgery Unit Vital Signs Most Recent Imported Vital Signs: Most Recent Vital Signs Temp Pulse Resp BP Pulse Ox 36.2 C L 91 H 16 130/87 93 03/29/21 15:30 03/29/21 15:30 03/29/21 15:30 03/29/21 15:30 03/29/21 15:30 Pain Score Most Recent Pain Score: Most Recent Pain Score Pain Level 5 03/29/21 15:30 Assessment Mental Status: Awake (Alert & Oriented to Patient Baseline) Airway and Respiratory Function: Patent airway with normal (patient baseline) respiratory exam Cardiovascular Function: Hemodynamically Stable Hydration Status: Adequately Hydrated Nausea & Vomiting: No Nausea or Vomiting Pain: Pain is tolerable/mild (<5/10) Peripheral Nerve Block: Regional nerve block not resolved at time of post operative discharge Teaching Patient Teaching: Discussed Safe Use of Pain Medication Given Recent Anesthesia
== END 2021-03-29 16:30 | disposition home or self-care (01) ==
PROVIDERS: PCP Nurse Practitioner Family; Visit Provider Student in an Organized Health Care Education/Training Program
PROC: (CPT 29805; principal; 2021-03-29 13:00)
PROC: (CPT 23430; 2021-03-29 13:00)
PROC: (CPT 23120; 2021-03-29 13:00)
DX: M19.012 Primary osteoarthritis, left shoulder (principal); S43.432A Superior glenoid labrum lesion of left shoulder, initial encounter; M75.82 Other shoulder lesions, left shoulder; M75.102 Unspecified rotator cuff tear or rupture of left shoulder, not specified as traumatic; J45.909 Unspecified asthma, uncomplicated; F17.210 Nicotine dependence, cigarettes, uncomplicated; F41.8 Other specified anxiety disorders; I10 Essential (primary) hypertension
CPT/HCPCS: 29828; 23120; 29823; 76942; J0690; J1100; J1885; J2001; J2250; J2370; J2405; J2704; J3010

== ENCOUNTER 2021-10-27 02:49 | Outpatient (CLI) | payer BC, SELFPAY ==
[2021-10-27 09:03] LABS: ALT 48 U/L (14-59); AST 31 U/L (15-37); Albumin 3.9 g/dL (3.4-5.0); Alkaline Phosphatase 112 U/L (46-116); Anion Gap 11.2 mmol/L (3-11); BUN 17 mg/dL (7-18); Bilirubin, Total 0.5 mg/dL (0.2-1.0); CO2 27.8 mmol/L (21.0-32.0); CREATININE 0.7 mg/dL (0.55-1.02); Calculated LDL 94 mg/dL (<100); Chloride 103 mmol/L (98-107); Cholesterol 193 mg/dL (<200); Glucose 92 mg/dL (74-106); HDL Cholesterol 77 mg/dL (40-60); Potassium 3.9 mmol/L (3.5-5.1); Sodium 142 mmol/L (136-145); Total Protein 7.1 g/dL (6.4-8.2); Triglyceride 112 mg/dL (<150)
== END 2021-10-27 02:50 | disposition home or self-care (01) ==
LOC: LBO 02:49
PROVIDERS: PCP Nurse Practitioner Family; Visit Provider Nurse Practitioner Family
DX: I10 Essential (primary) hypertension (principal); E78.5 Hyperlipidemia, unspecified; Z13.1 Encounter for screening for diabetes mellitus
CPT/HCPCS: 36415; 80053; 80061

== ENCOUNTER 2022-04-06 01:19 | Outpatient (CLI) | payer BC, SELFPAY ==
--- NOTE | 2022-04-06 06:41 | DI.MAMMO_ITS ---
Exam(s) MAMMO SCREENING EXAM: MAMMO SCREENING CLINICAL HISTORY: screening,Z12.39. TECHNIQUE: Bilateral full field digital CC and MLO mammographic images were obtained with 3D tomosyn thesis and utilizing computer aided detection (CAD). COMPARISON: Prior mammograms were reviewed, the most recent being January 2020. FINDINGS: There has been no significant change in the appearance and distribution of the fibroglandular tissue. There are no CAD designations. There are no new spiculated masses nor malignant appearing microcalcification groups. Benign-appearing nodules laterally in the right breast are unchanged. There is no significant architectural distortion nor skin thickening-retraction. IMPRESSION: No radiographic evidence of malignancy. BI-RADS Category 1 - Negative Breast Density - Category B - Scattered areas of fibroglandular density Breast density Category C or D implies that the patient has dense breast tissue. Dense breast tissue can make it harder to find cancer on a mammogram. Dense breast tissue is also associated with an incr eased risk of breast cancer. This information about the result of the mammogram report was provided to the patient to raise their awareness. Use this report when you speak with the patient about their risks for breast cancer, which includes their family history. At that time, you may recommend additional screening tests (Ultrasoun d or MRI) as these tests may add significant information. A negative radiographic report should not delay biopsy if a dominant or clinically suspicious mass is present. Up to ten percent of cancers are not identified on mammography. A negative report may reinforce clinical impression. Adenosis and dense breasts may obscure an underlying neoplasm. False positive reports average 6 to 10%. Patient will receive a letter notifying them of these results.
== END 2022-04-06 01:39 ==
PROVIDERS: PCP Nurse Practitioner Family; Visit Provider Nurse Practitioner Family
DX: Z12.31 Encounter for screening mammogram for malignant neoplasm of breast (principal)
CPT/HCPCS: 77063; 77067

== ENCOUNTER 2022-09-14 12:20 | Outpatient (REF) | payer BC, SELFPAY ==
[2022-09-16 10:42] LABS: COVID-19 RT-PCR UVMMC Result Positive (Negative)
== END 2022-09-14 12:21 | disposition home or self-care (01) ==
LOC: LBN 12:20
PROVIDERS: PCP Nurse Practitioner Family; Visit Provider Nurse Practitioner Family
DX: J98.8 Other specified respiratory disorders (principal); R05.9 Cough, unspecified; Z20.822 Contact with and (suspected) exposure to COVID-19
CPT/HCPCS: U0003

== ENCOUNTER 2023-01-23 07:22 | Emergency (ER) | payer BC, SELFPAY ==
[2023-01-23 07:24] VITALS: BP 105/73; PULSE 89; RESP 16; TEMP 35.8; O2SAT 98
--- NOTE | 2023-01-23 07:45 | DI.RAD_ITS ---
Exam(s) XR FOOT RT COMPLETE EXAM: XR FOOT RT COMPLETE CLINICAL HISTORY: inverted 1.5 wk ago, pain medial navicular. TECHNIQUE: 2D digital imaging was performed of the right foot. Three images were obtained. AP, obl ique and lateral views were obtained. COMPARISON: No exams were available for comparison FINDINGS: BONES: No acute fracture is present. No bony destructive lesion is seen. JOINTS: No dislocation present. Degenerative changes are seen at the 1st MTP joint with joint space n arrowing and bony hypertrophy. SOFT TISSUE: Normal. IMPRESSION: No acute fracture or dislocation. DATA REPOSITORY: RADIATION DOSE DELIVERED:
--- NOTE | 2023-01-23 07:54 | ED.GENADUL_ITS ---
Discharge Plan Disposition Patient Disposition: Home Condition: Stable Discharge Details Clinical Impression: Right foot sprain Primary Care Provider: Ashanti Thakkar ED Provider: Javier Perez Home Meds and New Rx's Prescriptions: Continued cyclobenzaprine 10 mg tablet 10 mg PO TID PRN (Reason: muscle spasm) Qty: 30 0RF albuterol sulfate [ProAir HFA] 90 mcg/actuation HFA aerosol inhaler 1 - 2 puff Inhalation Q4-6H PRN Qty: 1 3RF Rx Instructions: DISPENSE ALBUTEROL INHALER BRAND COVERED BY INSURANCE venlafaxine 150 mg capsule,extended release 24hr 150 mg PO DAILY Qty: 90 3RF lisinopril 5 mg tablet 5 mg PO DAILY Qty: 90 3RF atorvastatin 40 mg tablet 40 mg PO DAILY Qty: 90 3RF hydrochlorothiazide 25 mg tablet 25 mg PO QAM Qty: 90 3RF trazodone 100 mg tablet 200 mg PO HS PRN (Reason: insomnia) Qty: 180 3RF fluconazole 150 mg tablet 150 mg PO ONCE Qty: 1 0RF Rx Instructions: as a single dose ibuprofen 600 mg tablet 600 mg PO TID PRN (Reason: pain) Qty: 30 0RF acetaminophen 500 mg capsule 1,000 mg PO Q8H PRN PRNQty: 90 0RF Discharge Instructions Instructions: Foot Sprain (ED) Additional Instructions: Please use orthopedic boot and crutches. Weight-bear as tolerated. Please follow-up with orthopedic surgery. You may need additional diagnostic imaging if pain does not improve over the next few days with splinting and crutches. Return to the emergency department immediately for any worsening or new concerning symptoms. Stand Alone Forms: Work Release Referrals: [facility] [Provider Group] Ashanti Thakkar NP [Primary Care Provider] - Medical Decision Making 57-year-old female here 1-1/2 weeks after inverting her ankle with pain in her medial midfoot, worse with ambulation and flexion. Patient is tender over her navicular medially. No other tenderness. Ibuprofen was given for pain. X-ray of the right foot was reviewed and interpreted by radiology: negative per Dr. Brennan Duran orthopedic ankle foot boot applied for splinting. Crutches provided. Patient was instructed to weight-bear as tolerated. Plan for follow-up with orthopedics. HPI General Mode of arrival: ambulatory . Date/Time Provider Initiated Documentation: 01/23/23 07:43 . Limitations to Documentation: no limitations . Information obtained by: patient . HPI Narrative: 57-year-old female presents with chief complaint of right foot pain. Patient notes about a week and a half ago she inverted her right ankle. She has had pain in her proximal medial right foot since the injury. She has pain is worse with ambulation and flexion. She denies ankle pain. No other injury. Related Data Home Medications Medication Instructions Recorded Confirmed albuterol sulfate 90 mcg/actuation 1 - 2 puff inhalation Q4-6H PRN ##1 04/24/19 01/23/23 aerosol inhaler (ProAir HFA) acetaminophen 500 mg capsule 1,000 mg PO Q8H PRN PRN #90 caps 03/29/21 01/23/23 ibuprofen 600 mg tablet 600 mg PO TID PRN pain #30 tabs 03/29/21 01/23/23 cyclobenzaprine 10 mg tablet 10 mg PO TID PRN muscle spasm #30 11/08/21 01/23/23 tab-caps venlafaxine 150 mg 150 mg PO DAILY #90 tab-caps 05/22/22 01/23/23 capsule,extended release 24 hr lisinopril 5 mg tablet 5 mg PO DAILY #90 tabs 08/23/22 01/23/23 atorvastatin 40 mg tablet 40 mg PO DAILY #90 tabs 10/18/22 01/23/23 hydrochlorothiazide 25 mg tablet 25 mg PO QAM #90 tab-caps 10/18/22 01/23/23 trazodone 100 mg tablet 200 mg PO HS PRN insomnia #180 10/18/22 01/23/23 tab-caps fluconazole 150 mg tablet 150 mg PO ONCE #1 tab 11/20/22 01/23/23 Previous Rx's Medication Instructions Recorded albuterol sulfate 90 mcg/actuation 1 - 2 puff inhalation Q4-6H PRN ##1 04/24/19 aerosol inhaler (ProAir HFA) acetaminophen 500 mg capsule 1,000 mg PO Q8H PRN PRN #90 caps 03/29/21 ibuprofen 600 mg tablet 600 mg PO TID PRN pain #30 tabs 03/29/21 cyclobenzaprine 10 mg tablet 10 mg PO TID PRN muscle spasm #30 11/08/21 tab-caps venlafaxine 150 mg 150 mg PO DAILY #90 tab-caps 05/22/22 capsule,extended release 24 hr lisinopril 5 mg tablet 5 mg PO DAILY #90 tabs 08/23/22 atorvastatin 40 mg tablet 40 mg PO DAILY #90 tabs 10/18/22 hydrochlorothiazide 25 mg tablet 25 mg PO QAM #90 tab-caps 10/18/22 trazodone 100 mg tablet 200 mg PO HS PRN insomnia #180 10/18/22 tab-caps fluconazole 150 mg tablet 150 mg PO ONCE #1 tab 11/20/22 Allergies Allergy/AdvReac Type Severity Reaction Status Date / Time bupropion HCl AdvReac Intermediate Agitation, Verified 01/23/23 07:30 [From Wellbutrin] nausea General Stated Complaint: Orthopedic WANDA: 4 Review of Systems Musculoskeletal Musculoskeletal: Reports as per HPI PFSH All Active Problems (Updated 01/23/23 @ 08:51 by Javier Perez MD) Right foot sprain (Acute) Arthritis of carpometacarpal (CMC) joint of left thumb (Chronic) Injected: 12/21/2019; Trapezial Resection: 05/10/2020 Asthma (Chronic) Anxiety and depression (Chronic) Essential hypertension (Chronic 08/31/16) Other and unspecified hyperlipidemia (Chronic 09/28/16) 07/2019 labs: LDL >190 --> started high intensity statin Insomnia (Chronic 08/31/16) Tobacco use disorder (Chronic) Medical History COVID-19 (~01/2021) De Quervain's tenosynovitis, left Hyperplastic colon polyp Surgical History Cholecystectomy Endometriosis surgery x2 Dr. Perrin History of appendectomy (~1990) History of section x3 in 1986, 1989, & 1992 at [facility] Hysterectomy, Total Abdominal (06/02/08) Dr. Nisa Orellana. For chronic pelvic pain & dysmenorrhea. Status post arthroscopy of left shoulder (03/29/21) s/p distal clavicle excision, extensive debridement, biceps tenodesis, acromioplasty Family History Mother Arthritis Mental disorder Anxiety Father , [place] at age 40. Myocardial infarction Sister Substance abuse H/o heroin abuse Sister Mental disorder Depression Grandmother Colon cancer Grandmother , at age 70. Diabetes Breast cancer Social History Smoking/Tobacco Use Status: Current every day Tobacco Type: cigarettes Smoking packs per day: 0.75 Smoking cigarettes per day: 15.0 Years smoked: 38 Smoking pack-years: 28.50 Smoking risk assessment performed?: Yes Alcohol Intake: current Alcohol Intake frequency: 0-2 drinks per day Alcohol type: wine Drug use: Never Substance use type: does not use Adopted: No Caregiver/Support person: No Foster care: No Household members: significant other and children Housing: house Number of Children: 3 number of grandchildren: 2 Communication Needs: None Education Level: college Do you need help understanding health information?: Never 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 Pets and animals: Yes Pets and animals: cat(s), dog(s) and bird(s) Sexually active: Yes Do you think of yourself as: straight/heterosexual Current gender identity: female What is your relationship status?: living with partner How often do you talk on the phone with friends or family?: three or more times per week How often do you get together with friends or relatives?: once per week Do you belong to any clubs or organized social groups?: no Panel score (0-1 are the most socially isolated patients): 2 What type of physical activity do you participate in: walking Duration: 15-30 minutes/day Frequency: 3-4 times per week Ibeth/Adventism: Pentecostalism Special ibeth needs: No Seatbelt use: always Drive intox or ride w/intox wrecker driver: No Water heater temp set <120 deg: Yes Working smoke detector in home: Yes Fire extinguisher in home: Yes Carbon monox detector in home: Yes Firearms in home: Yes Firearms unloaded and locked: Yes Do you feel safe at home: Yes Do you feel safe in your relationship?: Yes History History 3 Para Hx # Term Pregnancies 3 Multiple births Hx # Pregnancies Ectopic pregnancies AB induced Hx Number of Living Children 3 AB spontaneous Exam Extrem Right lower extremity: ankle Details: normal to inspection and normal ROM; no tenderness and no swelling and foot Details: normal capillary refill, tenderness Location: of the medial foot (navicular), toes with normal ROM, vascular exam Details: dorsalis pedis pulse present (2+) and motor-sensory exam Details: light-touch normal; no unusual warmth and no edema Course Vital Signs Vital signs: Vital Signs Temperature 35.8 C L 01/23/23 07:24 Pulse 89 01/23/23 07:24 Respiratory Rate 16 01/23/23 07:24 Blood Pressure 105/73 01/23/23 07:24 Pulse Oximetry 98 01/23/23 07:24 Temperature 35.8 C L 01/23/23 07:24 Temperature Source Tympanic 01/23/23 07:24 Pulse 89 01/23/23 07:24 Respiratory Rate 16 01/23/23 07:24 Respiratory Effort Normal 01/23/23 07:31 Blood Pressure 105/73 01/23/23 07:24 Blood Pressure Position Sitting 01/23/23 07:24 Pulse Oximetry 98 01/23/23 07:24 Oxygen Delivery Method Room Air 01/23/23 07:24 Oxygen Flow Rate 0 01/23/23 07:24 Pain Level 6 01/23/23 07:32 PAWSS Have you Been Recently Intoxicated or Drunk Within the Last 30 days?: No Have you Ever Experienced Previous Episodes of Alcohol Withdrawal?: No Have you ever Experienced Withdrawal Seizures?: No Have you ever Experienced Delirium Tremens(DT)s?: No Have you ever undergone Alcohol Rehabilitation Treatment (i.e, inpt ot outpatient treatment programs)?: No Have you ever Experienced Blackouts?: No Have you ever Combined Alcohol with other Downers within the last 90 days?: No Have you ever Combined Alcohol with any other Substance of Abuse during the last 90 days?: No Positive Blood Alcohol level on Presentation? [PCS.BAL]: No Evidence of Increased Autonomic Activity (i.e. HR>120, tremor, sweating, agitation, nausea)?: No Result: 0
[2023-01-23] MEDS: Ibuprofen 600 MG TAB PO (08:06)
--- NOTE | 2023-01-23 17:03 | NUR.NOTE ---
Nursing Note: Accessed chart for [facility] billing purposes.
== END 2023-01-23 09:45 | disposition home or self-care (01) ==
PROVIDERS: Emergency Provider Student in an Organized Health Care Education/Training Program; PCP Nurse Practitioner Family
DX: S93.601A Unspecified sprain of right foot, initial encounter (principal); Z86.16 Personal history of COVID-19; X50.1XXA Overexertion from prolonged static or awkward postures, initial encounter
CPT/HCPCS: 99283; 73630; 99282

== ENCOUNTER 2023-02-01 01:29 | Outpatient (CLI) | payer BC, SELFPAY ==
[2023-02-01 12:28] LABS: Anion Gap 9.1 mmol/L (3-11); BUN 13 mg/dL (7-18); CO2 29.9 mmol/L (21.0-32.0); CREATININE 0.8 mg/dL (0.55-1.02); Calcium 9.3 mg/dL (8.5-10.1); Calculated LDL 123 mg/dL (<100); Chloride 104 mmol/L (98-107); Cholesterol 214 mg/dL (<200); Estimated GFR 86.96 (mL/min/1.73m2); Glucose 91 mg/dL (74-106); HDL Cholesterol 70 mg/dL (40-60); Potassium 3.5 mmol/L (3.5-5.1); Sodium 143 mmol/L (136-145); Triglyceride 109 mg/dL (<150)
== END 2023-02-01 01:30 | disposition home or self-care (01) ==
LOC: LBO 01:30
PROVIDERS: PCP Nurse Practitioner Family; Referring Provider Nurse Practitioner Family; Visit Provider Nurse Practitioner Family
DX: E78.5 Hyperlipidemia, unspecified (principal); I10 Essential (primary) hypertension; Z13.1 Encounter for screening for diabetes mellitus
CPT/HCPCS: 36415; 80048; 80061

== ENCOUNTER 2023-02-11 15:53 | Outpatient (CLI) | payer BC, SELFPAY ==
--- NOTE | 2023-02-11 15:45 | DI.RAD_ITS ---
Exam(s) XR ANKLE RT COMPLETE EXAM: XR ANKLE RT COMPLETE CLINICAL HISTORY: right ankle injury. TECHNIQUE: 2D digital imaging was performed of the right ankle. Three images were obtained. AP, la teral and oblique views were obtained. COMPARISON: No exams were available for comparison FINDINGS: BONES: No acute fracture is present. No bony destructive lesion is seen. There is a small plantar ca lcaneal spur. JOINTS: The ankle mortise is normally aligned. SOFT TISSUE: Normal. IMPRESSION: No acute abnormality. DATA REPOSITORY: RADIATION DOSE DELIVERED:
== END 2023-02-11 15:54 | disposition home or self-care (01) ==
LOC: DIORS 15:53
PROVIDERS: PCP Nurse Practitioner Family; Referring Provider Nurse Practitioner Family; Visit Provider Physician Assistant
DX: S99.811A Other specified injuries of right ankle, initial encounter; M77.31 Calcaneal spur, right foot; M25.571 Pain in right ankle and joints of right foot
CPT/HCPCS: 73610

== ENCOUNTER → 2024-01-17 09:33 | Outpatient (CLI) | payer BC, SELFPAY ==
--- NOTE | 2024-01-17 08:57 | DI.RAD_ITS ---
Exam(s) XR KNEE RT 3V AP,LAT,ISMAEL EXAM: XR KNEE RT 3V AP,LAT,ISMAEL CLINICAL HISTORY: right knee pain,M25.561. TECHNIQUE: 2D digital imaging was performed of the right knee. Three views obtained. AP, lateral an d PA tunnel views were obtained. COMPARISON: CR RIGHT KNEE 3 VIEWS from 12/21/2010 FINDINGS: BONES: No acute fracture is present. No bony destructive lesion is seen. JOINTS: The knee is normally aligned. No joint effusion is seen. SOFT TISSUE: Normal. IMPRESSION: Unremarkable radiographs of the right knee. DATA REPOSITORY: RADIATION DOSE DELIVERED:
== END ==
PROVIDERS: PCP Nurse Practitioner Family; Visit Provider Emergency Medicine
DX: M25.561 Pain in right knee (principal)
CPT/HCPCS: 73562

== ENCOUNTER 2024-01-17 09:34 | Outpatient (CLI) | payer BC, SELFPAY ==
[2024-01-17 09:31] LABS: C-Reactive Protein < 0.50 mg/dL (<or=0.5)
== END 2024-01-17 09:35 | disposition home or self-care (01) ==
LOC: LBO 09:35
PROVIDERS: PCP Nurse Practitioner Family; Visit Provider Emergency Medicine
DX: M25.561 Pain in right knee (principal)
CPT/HCPCS: 36415; 86140

== ENCOUNTER 2024-05-01 08:05 | Emergency (ER) | payer BC, SELFPAY ==
[2024-05-01 08:08] VITALS: BP 117/73; PULSE 79; RESP 14; TEMP 36.7; O2SAT 94
--- NOTE | 2024-05-01 08:15 | W.ED.GENAD ---
Discharge Plan Disposition Patient Disposition: Home Condition: Stable Discharge Details Clinical Impression: Ankle fracture, lateral malleolus, closed, Acute right ankle pain Primary Care Provider: Ashanti Thakkar ED Provider: Kane Boss Home Meds and New Rx's Prescriptions: No Action celecoxib [Celebrex] 100 mg capsule 100 mg PO BID Qty: 60 3RF albuterol sulfate [ProAir HFA] 90 mcg/actuation HFA aerosol inhaler 1 - 2 puff Inhalation Q4-6H PRN Qty: 1 3RF Rx Instructions: DISPENSE ALBUTEROL INHALER BRAND COVERED BY INSURANCE trazodone 100 mg tablet 200 mg PO HS PRN (Reason: insomnia) Qty: 180 3RF venlafaxine 150 mg capsule,extended release 24hr 150 mg PO DAILY Qty: 90 3RF lisinopril 5 mg tablet See Rx Instructions .ROUTE .COMPLEX Qty: 90 3RF Dose Instruction: TAKE 1 TABLET BY MOUTH DAILY Rx Instructions: TAKE 1 TABLET BY MOUTH DAILY atorvastatin 40 mg tablet See Rx Instructions .ROUTE .COMPLEX Qty: 90 3RF Dose Instruction: TAKE ONE TABLET BY MOUTH ONCE DAILY Rx Instructions: TAKE ONE TABLET BY MOUTH ONCE DAILY hydrochlorothiazide 25 mg tablet 25 mg PO QAM Qty: 90 3RF ibuprofen 600 mg tablet 600 mg PO TID PRN (Reason: pain) Qty: 30 0RF acetaminophen 500 mg capsule 1,000 mg PO Q8H PRN PRNQty: 90 0RF Discharge Instructions Instructions: Ankle Fracture (DC) Additional Instructions: - You have a small nondisplaced fracture of your ankle -Wear walking boot for comfort and support, use crutches to help with ambulation. Weightbearing only as tolerated -Keep foot elevated, ice can help with throbbing or swelling. Take Motrin and Tylenol as needed for pain -Follow-up with orthopedic surgery Stand Alone Forms: Work Release Referrals: Estuardo Velasquez MD [ [facility] STAFF PHYSICIAN] - Discharge Data Discharge Date/Time-TO BE ENTERED AT DEPARTURE: 05/01/24 09:30 HPI General Date/Time Provider Initiated Documentation: 05/01/24 08:13. Limitations to Documentation: no limitations. Information obtained by: patient. HPI Narrative: 58-year-old female without significant past medical history presents for evaluation of right ankle pain. Reports onset last night. She states that she was moving boxes and her foot got stuck between 2 boxes she fell backwards twisting her foot. She reports significant pain localized to the outside aspect of the foot and ankle. Pain worse with walking. And ice the foot last night. Reports no significant improvement in symptoms. Related Data Home Medications Medication Instructions Recorded Confirmed albuterol sulfate 90 mcg/actuation 1 - 2 puff inhalation Q4-6H PRN ##1 04/24/19 05/01/24 aerosol inhaler (ProAir HFA) acetaminophen 500 mg capsule 1,000 mg (2 x 500 mg) PO Q8H PRN 03/29/21 05/01/24 PRN #90 caps ibuprofen 600 mg tablet 600 mg PO TID PRN pain #30 tabs 03/29/21 05/01/24 trazodone 100 mg tablet 200 mg (2 x 100 mg) PO HS PRN 10/18/22 05/01/24 insomnia #180 tab-caps venlafaxine 150 mg 150 mg PO DAILY #90 tab-caps 05/15/23 05/01/24 capsule,extended release 24 hr lisinopril 5 mg tablet See Rx Instructions .Route 08/07/23 05/01/24 .COMPLEX #90 tabs atorvastatin 40 mg tablet See Rx Instructions .Route 10/14/23 05/01/24 .COMPLEX #90 tabs hydrochlorothiazide 25 mg tablet 25 mg PO QAM #90 tab-caps 10/31/23 05/01/24 celecoxib 100 mg capsule (Celebrex) 100 mg PO BID #60 caps 01/17/24 05/01/24 Previous Rx's Medication Instructions Recorded albuterol sulfate 90 mcg/actuation 1 - 2 puff inhalation Q4-6H PRN ##1 04/24/19 aerosol inhaler (ProAir HFA) acetaminophen 500 mg capsule 1,000 mg (2 x 500 mg) PO Q8H PRN 03/29/21 PRN #90 caps ibuprofen 600 mg tablet 600 mg PO TID PRN pain #30 tabs 03/29/21 trazodone 100 mg tablet 200 mg (2 x 100 mg) PO HS PRN 10/18/22 insomnia #180 tab-caps venlafaxine 150 mg 150 mg PO DAILY #90 tab-caps 05/15/23 capsule,extended release 24 hr lisinopril 5 mg tablet See Rx Instructions .Route 08/07/23 .COMPLEX #90 tabs atorvastatin 40 mg tablet See Rx Instructions .Route 10/14/23 .COMPLEX #90 tabs hydrochlorothiazide 25 mg tablet 25 mg PO QAM #90 tab-caps 10/31/23 celecoxib 100 mg capsule (Celebrex) 100 mg PO BID #60 caps 01/17/24 Allergies Allergy/AdvReac Type Severity Reaction Status Date / Time bupropion HCl AdvReac Intermediate Agitation, Verified 05/01/24 08:48 [From Wellbutrin] nausea General Stated Complaint: Orthopedic WANDA: 4 Exam Narrative Exam Narrative: Review of Systems: All systems reviewed & are unremarkable except as noted in HPI and below Well-developed, no acute distress NCAT PERRL, normal conjunctiva RRR Unlabored respiratory effort Nondistended abdomen Right ankle with swelling over the lateral malleolus. Point tenderness to the lateral mall. Tender over the proximal head of the fifth metatarsal, no obvious deformity, no bruising appreciated, neurovascularly intact with 2+ DP pulse No appreciable tenderness of the proximal tib-fib, no knee effusion, tenderness, there is full range of motion of the knee. No rashes or lesions. no focal neurologic deficits Appropriate mood and affect Course Vital Signs Vital signs: Vital Signs Temperature 36.7 C 05/01/24 08:08 Pulse 79 05/01/24 08:08 Respiratory Rate 14 05/01/24 08:08 Blood Pressure 117/73 05/01/24 08:08 Pulse Oximetry 94 05/01/24 08:08 Temperature 36.7 C 05/01/24 08:08 Temperature Source Skin 05/01/24 08:08 Pulse 79 05/01/24 08:08 Respiratory Rate 14 05/01/24 08:08 Respiratory Effort Normal, Non-Labored 05/01/24 08:11 Blood Pressure 117/73 05/01/24 08:08 Blood Pressure Position Sitting 05/01/24 08:08 Pulse Oximetry 94 05/01/24 08:08 Oxygen Delivery Method Room Air 05/01/24 08:08 Oxygen Flow Rate 0 05/01/24 08:08 Pain Level 10 05/01/24 08:11 Comment With movement & weight bearing 05/01/24 08:08 Procedures Orthopedic Splinting/Casting Injury #1: Side: right Lower Extremity Injury Location: ankle Lower Extremity Immobilizer: posterior splint and stirrup splint Other Orthopedic Equipment: walker Medical Decision Making Emergent evaluation of acute traumatic ankle pain. Patient has difficulty with weightbearing. Initial differential includes fracture, contusion, ligamentous injury. X-ray was obtained. This is significant for a fracture of the lateral mall malleolus. No displacement. Walking boot was not available, so a splint was placed. Crutches were also not available, so the patient was provided with a walker. She was referred to orthopedic surgery for further follow-up and casting as needed. Quality:SDOH Health Related Social Needs: No Data to Display PFSH All Active Problems (Updated 05/01/24 @ 08:53 by Kane Boss MD) Acute right ankle pain (Acute) Ankle fracture, lateral malleolus, closed (Acute) Tear of lateral meniscus of right knee (Acute) Right knee pain (Acute) Right ankle sprain (Acute) Arthritis of carpometacarpal (CMC) joint of left thumb (Chronic) Injected: 12/21/2019; Trapezial Resection: 05/10/2020 Asthma (Chronic) Anxiety and depression (Chronic) Essential hypertension (Chronic 08/31/16) Other and unspecified hyperlipidemia (Chronic 09/28/16) 07/2019 labs: LDL >190 --> started high intensity statin Insomnia (Chronic 08/31/16) Tobacco use disorder (Chronic) Medical History COVID-19 (~01/2021) Hyperplastic colon polyp De Quervain's tenosynovitis, left Surgical History History of section x3 in 1986, 1989, & 1992 at [facility] History of appendectomy (~1990) Status post arthroscopy of left shoulder (03/29/21) s/p distal clavicle excision, extensive debridement, biceps tenodesis, acromioplasty Hysterectomy, Total Abdominal (06/02/08) Dr. Nisa Orellana. For chronic pelvic pain & dysmenorrhea. Endometriosis surgery x2 Dr. Perrin Cholecystectomy Family History Mother Arthritis Mental disorder Anxiety Father , [place] at age 40. Myocardial infarction Sister Substance abuse H/o heroin abuse Sister Mental disorder Depression Grandmother Colon cancer Grandmother , at age 70. Diabetes Breast cancer Social History Smoking/Tobacco Use Status: Current every day Tobacco Type: cigarettes Smoking packs per day: 0.75 Smoking cigarettes per day: 15.0 Years smoked: 38 Smoking pack-years: 28.50 Smoking risk assessment performed?: Yes Alcohol Intake: current Alcohol Intake frequency: 0-2 drinks per day Alcohol type: wine Drug use: Never Substance use type: does not use Adopted: No Caregiver/Support person: No Foster care: No Household members: significant other and children Housing: house Number of Children: 3 number of grandchildren: 2 Communication Needs: None Education Level: college Do you need help understanding health information?: Never 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 Pets and animals: Yes Pets and animals: cat(s), dog(s) and bird(s) Sexually active: Yes Do you think of yourself as: straight/heterosexual Current gender identity: female What is your relationship status?: living with partner How often do you talk on the phone with friends or family?: three or more times per week How often do you get together with friends or relatives?: once per week Do you belong to any clubs or organized social groups?: no Panel score (0-1 are the most socially isolated patients): 2 What type of physical activity do you participate in: walking Duration: 15-30 minutes/day Frequency: 3-4 times per week Ibeth/Buddhism: Temple Special ibeth needs: No Seatbelt use: always Drive intox or ride w/intox class a regional truck driver: No Water heater temp set <120 deg: Yes Working smoke detector in home: Yes Fire extinguisher in home: Yes Carbon monox detector in home: Yes Firearms in home: Yes Firearms unloaded and locked: Yes Do you feel safe at home: Yes Do you feel safe in your relationship?: Yes History History 3 Para Hx # Term Pregnancies 3 Multiple births Hx # Pregnancies Ectopic pregnancies AB induced Hx Number of Living Children 3 AB spontaneous
[2024-05-01] MEDS: Acetaminophen 500 MG TAB 1000 MG PO (08:35)
[2024-05-01] MEDS: Ketorolac 10 MG TAB PO (08:35)
--- NOTE | 2024-05-01 08:38 | DI.RAD_ITS ---
Exam(s) XR ANKLE RT COMPLETE XR FOOT RT COMPLETE EXAM: XR ANKLE RT COMPLETE CLINICAL HISTORY: injury r ankle foot. TECHNIQUE: 2D digital imaging was performed. Three views of the ankle and foot. COMPARISON: CR XR ANKLE RT COMPLETE from 02/11/2023 CR XR FOOT RT COMPLETE from 05/01/2024 FINDINGS: BONES: Nondisplaced fracture tip of lateral malleolus. No additional fractures. Small plantar calca opal spur. Mild degenerative changes at the 1st MTP joint as well as bunion formation. No bony dest ructive lesion is seen. JOINTS: The ankle mortise is normally aligned. SOFT TISSUE: Swelling over lateral malleolus. IMPRESSION: Nondisplaced fracture at the tip of the lateral malleolus. DATA REPOSITORY: RADIATION DOSE DELIVERED:
== END 2024-05-01 09:30 | disposition home or self-care (01) ==
PROVIDERS: Emergency Provider Emergency Medicine; PCP Nurse Practitioner Family
DX: S82.64XA Nondisplaced fracture of lateral malleolus of right fibula, initial encounter for closed fracture (principal); W01.0XXA Fall on same level from slipping, tripping and stumbling without subsequent striking against object, initial encounter; I10 Essential (primary) hypertension; E78.5 Hyperlipidemia, unspecified; F17.210 Nicotine dependence, cigarettes, uncomplicated; Y93.01 Activity, walking, marching and hiking; Y92.89 Other specified places as the place of occurrence of the external cause
CPT/HCPCS: 99283; 73610; 73630

== ENCOUNTER 2024-06-07 11:39 | Observation (INO) | payer BC, SELFPAY ==
[2024-06-07] VITALS (42 sets, daily range): BP systolic 91–136; BP diastolic 63–89; PULSE 80–110; RESP 13–33; TEMP 36.1–38; O2SAT 74–100
--- NOTE | 2024-06-07 12:00 | RT.EKG_ITS ---
APPROVED REPORT Exam: Resting ECG Reason for Exam: weakness Patient Location: E HR:98 bpm ECG Measurements Heart Rate 98 AXIS WA 172 P 49 QRSd 83 QRS 47 QT 344 T 191 QTc 441 Conclusion Incomplete analysis due to missing data in precordial lead(s) Sinus rhythm...normal P axis, V-rate 60- 99 Probable left atrial enlargement...P >50mS, <-0.10mV V1 Narrow complex normal sinus rhythm at a rate of 98. Normal axis. Intervals within normal limits. T wave inversion in lead V3. No tracing in V6. Within limitations of interpretation no acute injury pattern.
--- NOTE | 2024-06-07 12:00 | DI.RAD_ITS ---
Exam(s) XR CHEST 2V PA LATERAL EXAM: XR CHEST 2V PA LATERAL CLINICAL HISTORY: wheezing, fatigue. TECHNIQUE: 2D digital imaging was performed. COMPARISON: CR XR CHEST 2V PA LATERAL from 09/28/2019 FINDINGS: 2 views: Heart size is normal. The mediastinum is not widened. Lungs are clear. No infiltrates nor pleural effusions. IMPRESSION: No acute pulmonary findings. DATA REPOSITORY: RADIATION DOSE DELIVERED:
--- NOTE | 2024-06-07 12:34 | DI.VRAD_ITS ---
PROCEDURE INFORMATION: Exam: XR Chest Exam date and time: 06/07/2024 12:28 PM Age: 58 years old Clinical indication: Wheezing TECHNIQUE: Imaging protocol: Radiologic exam of the chest. Views: 2 views. COMPARISON: CR XR CHEST 2V PA LATERAL 09/28/2019 11:00 AM FINDINGS: Lungs: Unremarkable. No consolidation. Pleural spaces: Unremarkable. No pleural effusion. No pneumothorax. Heart/Mediastinum: Unremarkable. No cardiomegaly. Bones/joints: Moderate degenerative disease of the right acromioclavicular joint. IMPRESSION: No acute cardiopulmonary process. Dictated and Authenticated by: Zak Ornelas MD. Ordering:AGNES Colbert MD
[2024-06-07 12:44] LABS: Abs Immature Grans 0.02 10^3/uL (0.0-0.06); Absolute Basophil Count 0.04 10^3/uL (0.0-0.2); Absolute Eosinophil Count 0.02 10^3/uL (0.0-0.7); Absolute Lymphocyte Count 1.47 10^3/uL (1.2-3.4); Absolute Monocyte Count 0.81 10^3/uL (0.1-0.8); Absolute Neutrophil Count 7.56 10^3/uL (1.2-6.7); Basophils % 0.4 %; Eosinophils % 0.2 %; HCT 41.5 % (36.0-46.0); HGB 14.2 g/dL (11.2-15.7); Immature Grans % 0.2 %; Lymphocytes % 14.8 %; MCH 31.1 pg (27.0-33.0); MCHC 34.2 % (32.0-36.0); MCV 91 fL (80-95); MPV 9.7 fL (8.0-11.0); Monocytes % 8.2 %; Neutrophils % 76.2 %; Platelet Count 267 10^3/uL (130-400); RBC 4.56 10^6/uL (3.93-5.22); RDW 12.9 % (11.7-14.6); RDW-SD 43.7 fL; WBC 9.92 10^3/uL (4.4-10.8)
[2024-06-07] MEDS: Normal Saline 1,000 ML 1000 ML IV ×2 (12:46→15:48)
[2024-06-07] MEDS: Albuterol/Ipratropium 3 ML UPD VIAL UPD ×3 (12:47→14:12)
[2024-06-07] MEDS: Dexamethasone 10 MG/ML VIAL IVP (12:47)
[2024-06-07] MEDS: Ondansetron 4 MG/2 ML VIAL IVP (12:47)
[2024-06-07 12:58] LABS: ALT 36 U/L (14-59); AST 38 U/L (15-37); Albumin 3.3 g/dL (3.4-5.0); Alkaline Phosphatase 95 U/L (46-116); Anion Gap 10.7 mmol/L (3-11); BUN 10 mg/dL (7-18); Bilirubin, Total 0.78 mg/dL (0.2-1.0); CO2 32.3 mmol/L (21.0-32.0); CREATININE 0.7 mg/dL (0.55-1.02); Calcium 9.2 mg/dL (8.5-10.1); Chloride 96 mmol/L (98-107); Estimated GFR 101.44 (mL/min/1.73m2); Glucose 108 mg/dL (74-106); Sodium 139 mmol/L (136-145); Total Protein 8.2 g/dL (6.4-8.2)
[2024-06-07 13:00] LABS: Potassium 2.8 mmol/L (3.5-5.1)
[2024-06-07] MEDS: Potassium Chloride 20 MEQ TABCR 40 MEQ PO ×2 (13:30→20:29)
[2024-06-07] MEDS: POTASSIUM CHLORIDE 20 MEQ/100 ML BAG 50 MEQ IVINF (13:33)
[2024-06-07 14:05] LABS: BE (Venous) 5 mmol/L (-2-3); HCO3 (Venous) 29 mmol/L (23-28); O2 Sat (Venous) 63 %; TCO2 (Venous) 30 mmol/L (24-29); pCO2 (Venous) 41 mmHg (41-51); pH (Venous) 7.46 (7.31-7.41); pO2 (Venous) 31 mmHg
[2024-06-07 14:09] LABS: Magnesium 2.1 mg/dL (1.8-2.4)
[2024-06-07 14:40] LABS: COVID-19 PCR Negative (Negative); Influenza A PCR Negative (Negative); Influenza B PCR Negative (Negative); RSV PCR Negative (Negative)
[2024-06-07 14:43] LABS: Source Nasopharynx
--- NOTE | 2024-06-07 15:24 | HPE_ITS ---
Date of service: 06/07/24 Time of Service: 15:24 Assessment and Plan Assessment and plan (1) Shortness of breath: Status: Acute Assessment and plan: Chest x-ray was negative for acute finding no pneumonia Initially the patient did not require any oxygen supplementation but then was on 3 L oxygen with a saturation of 96% There is no leukocytosis the patient is normothermic, systolic blood pressure remains above 90 Tachycardia and tachypnea would qualify the patient for sepsis but the source is questionable. If sputum shows purulence or noticeable pneumonia on chest x-ray, this may be considered as a source. Then the patient would qualify for a diagnostic of sepsis. Treatment initiated with ceftriaxone and doxycycline in the ED. Procalcitonin ordered and pending. If procalcitonin is negative we will treat the patient as a COPD exacerbation as below. (2) COPD exacerbation: Status: Acute Assessment and plan: IV doxycycline Initial dose of methylprednisolone IV initiated in the ED today Prednisone 40 Mg p.o. daily Nebulizer treatment Mucinex Incentive spirometry Vibra Pep RT consultation CBC and BMP in a.m. (3) Depression: Status: Chronic Assessment and plan: Will continue home dose of Effexor (4) Tobacco abuse: Status: Acute Assessment and plan: As needed nicotine replacement therapy ordered (5) Hypokalemia: Status: Acute Assessment and plan: K 2.8 , 20 meq PO in ED Further supplementation ordered BMP in AM Mag level 2.1 (6) Hyperlipidemia: Status: Acute Assessment and plan: On atorvastatin (7) On deep vein thrombosis (DVT) prophylaxis: Status: Acute Assessment and plan: On low molecular weight heparin Discussed with Dr. Renteria History of Present Illness History of Present Illness Chief Complaint: Shortness of breath Narrative: This 58 years old female patient with a past medical history of [id number] smoking, depression, recurrent bronchitis and pneumonia in our 20's and 30s, presented to the ED at [facility] on 06/07/2024 for evaluation of shortness of breath. Report given that multiple member of the patient family were experiencing symptoms of upper respiratory infection similar to colds. The patient presented with tachycardia with heart rate up to 110 and intermittent tachypnea with respiratory rate up to 27 in the ED. initially the patient saturation was 93% on room air but then developed the need for oxygen supplementation with sats of 96% on 3 L in the ED. Remarkable labs in the ED were a potassium of 2.8. VBG: PH 7.46, pCO2 41, bicarb 29. Respiratory viral serology panel was negative. Chest x-ray was unremarkable with no acute cardiopulmonary findings as per report but cephalization could be observed on images. In the ED the patient was treated with nebulizer treatments, IV ceftriaxone, IV doxycycline. Normal saline at 125 was initiated. Blood cultures were drawn in the ED. The hospitalist was contacted and patient was admitted to the medical surgical floor for evaluation and management of shortness of breath. When seen, the patient reported having decrease in food intake since Saturday when her symptoms started, but was able to tolerate oral fluids despite nausea. The patient reported smoking less due to her symptoms. The patient reported headache, dry nonproductive cough, fevers up to 102, chills and achy pains. The patient denied nasal congestion, hemoptysis, vomiting, diarrhea or dysuria. The patient reported rib pain due to coughing. The patient denied any production of purulent sputum. The patient reported being on aspirin and atorvastatin as per her primary care orders for high cholesterol. The patient heart rate was 91 with a sinus rhythm. The patient denied previous history of stroke or myocardial infarction. The patient was unable to inform provider regarding her status for pneumonia immunization. But the patient reported taking her influenza vaccine this year. Review of Systems All systems reviewed & are unremarkable except as noted in HPI and below PFSH All Active Problems (Updated 06/07/24 @ 19:43 by Olivia Monsalve APRN) Hyperlipidemia (Acute) Hypokalemia (Acute) On deep vein thrombosis (DVT) prophylaxis (Acute) Tobacco abuse (Acute) Depression (Chronic) COPD exacerbation (Acute) Shortness of breath (Acute) Tear of lateral meniscus of right knee (Acute) Right knee pain (Acute) Right ankle sprain (Acute) Arthritis of carpometacarpal (CMC) joint of left thumb (Chronic) Injected: 12/21/2019; Trapezial Resection: 05/10/2020 Asthma (Chronic) Anxiety and depression (Chronic) Essential hypertension (Chronic 08/31/16) Other and unspecified hyperlipidemia (Chronic 09/28/16) 07/2019 labs: LDL >190 --> started high intensity statin Insomnia (Chronic 08/31/16) Tobacco use disorder (Chronic) Medical History COVID-19 (~01/2021) Hyperplastic colon polyp De Quervain's tenosynovitis, left Surgical History History of section x3 in 1986, 1989, & 1992 at [place] & [facility] History of appendectomy (~1990) Status post arthroscopy of left shoulder (03/29/21) s/p distal clavicle excision, extensive debridement, biceps tenodesis, acromioplasty Hysterectomy, Total Abdominal (06/02/08) Dr. Nisa Orellana. For chronic pelvic pain & dysmenorrhea. Endometriosis surgery x2 Dr. Perrin Cholecystectomy Family History Mother Arthritis Mental disorder Anxiety Father , [place] at age 40. Myocardial infarction Sister Substance abuse H/o heroin abuse Sister Mental disorder Depression Grandmother Colon cancer Grandmother , at age 70. Diabetes Breast cancer Social History Smoking/Tobacco Use Status: Current every day Tobacco Type: cigarettes Smoking packs per day: 1 Smoking cigarettes per day: 20.0 Years smoked: 30 Smoking pack- years: 30.00 Smoking risk assessment performed?: Yes Alcohol Intake: current Alcohol Intake frequency: 0-2 drinks per day Alcohol type: wine Drug use: Never Substance use type: does not use Adopted: No Caregiver/Support person: No Foster care: No Household members: significant other and children Housing: house Number of Children: 3 number of grandchildren: 2 Communication Needs: None Education Level: college Do you need help understanding health information?: Never 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 Pets and animals: Yes Pets and animals: cat(s), dog(s) and bird(s) Sexually active: Yes Do you think of yourself as: straight/heterosexual Current gender identity: female What is your relationship status?: living with partner How often do you talk on the phone with friends or family?: three or more times per week How often do you get together with friends or relatives?: once per week Do you belong to any clubs or organized social groups?: no Panel score (0-1 are the most socially isolated patients): 2 What type of physical activity do you participate in: walking Duration: 15-30 minutes/day Frequency: 3-4 times per week Ibeth/Yarsanism: Yazidism Special ibeth needs: No Seatbelt use: always Drive intox or ride w/intox lyft driver: No Water heater temp set <120 deg: Yes Working smoke detector in home: Yes Fire extinguisher in home: Yes Carbon monox detector in home: Yes Firearms in home: Yes Firearms unloaded and locked: Yes Do you feel safe at home: Yes Do you feel safe in your relationship?: Yes History History 2 3 Para Hx # Term Pregnancies 3 Multiple births Hx # Pregnancies Ectopic pregnancies AB induced Hx Number of Living Children 3 AB spontaneous Meds Allergies and Home Medications Allergies Allergy/AdvReac Type Severity Reaction Status Date / Time bupropion HCl AdvReac Intermediate Agitation, Verified 06/07/24 11:52 [From Wellbutrin] nausea Home Medications Medication Instructions Recorded Confirmed Type albuterol sulfate 90 mcg/actuation 1 - 2 puff inhalation Q4-6H PRN ##1 04/24/19 06/07/24 Rx aerosol inhaler (ProAir HFA) acetaminophen 500 mg capsule 1,000 mg (2 x 500 mg) PO Q8H PRN 03/29/21 06/07/24 Rx PRN #90 caps ibuprofen 600 mg tablet 600 mg PO TID PRN pain #30 tabs 03/29/21 06/07/24 Rx trazodone 100 mg tablet 200 mg (2 x 100 mg) PO HS PRN 10/18/22 06/07/24 Rx insomnia #180 tab-caps lisinopril 5 mg tablet See Rx Instructions .Route 08/07/23 06/07/24 Rx .COMPLEX #90 tabs atorvastatin 40 mg tablet See Rx Instructions .Route 10/14/23 06/07/24 Rx .COMPLEX #90 tabs hydrochlorothiazide 25 mg tablet 25 mg PO QAM #90 tab-caps 10/31/23 06/07/24 Rx celecoxib 100 mg capsule (Celebrex) 100 mg PO BID #60 caps 05/09/24 06/07/24 Rx venlafaxine 150 mg 150 mg PO DAILY #90 tab-caps 05/11/24 06/07/24 Rx capsule,extended release 24 hr Exam Narrative Exam Narrative: Constitutional HENMT: Facial structures with normal appearance Neuro:alert and oriented to self, person, place time and situation. No neurological focal deficit, PERRLA on RA Chest:Chest is symmetrical and normal appearance Resp: Normal respiratory pattern, speaks in full sentences, RR 21- 24 , clear lung bilaterally Cardio: regular rhythm, S1, S2, no murmur, positive pulses to all 4 extremities GI: Abdomen is not distended, soft and non tender, bowel sounds are present : Negative Costovertebral angle tenderness Back/spine/Pelvis: No back tenderness, normal alignment Integumentary: No lesions or rash on exposed skin Extremities: strength 5/5 to bilateral lower and upper extremities Psych: RASS 0, congruent mood and normal affect. Results Labs 06/07/24 12:36 06/07/24 12:36 Labs: Laboratory Results - last 24 hr 06/07/24 06/07/24 06/07/24 12:36 13:49 13:54 WBC 9.92 RBC 4.56 Hgb 14.2 Hct 41.5 MCV 91 MCH 31.1 MCHC 34.2 RDW 12.9 Plt Count 267 MPV 9.7 Immature Gran % 0.2 Neutrophils % 76.2 Lymphocytes % 14.8 Monocytes % 8.2 Eosinophils % 0.2 Basophils % 0.4 Nucleated RBC % 0.0 Absolute Neutrophils 7.56 H Absolute Lymphocytes 1.47 Absolute Monocytes 0.81 H Absolute Eosinophils 0.02 Absolute Basophils 0.04 VBG pH 7.46 H VBG pCO2 41 VBG pO2 31 VBG HCO3 29 H VBG Total CO2 30 H VBG O2 Saturation 63 VBG Base Excess 5 H Sodium 139 Potassium 2.8 L* Chloride 96 L Carbon Dioxide 32.3 H Anion Gap 10.7 BUN 10 Creatinine 0.7 Est GFR (CKD-EPI 2020) 101.44 Glucose 108 H Calcium 9.2 Magnesium 2.1 Total Bilirubin 0.78 AST 38 H ALT 36 Alkaline Phosphatase 95 Total Protein 8.2 Albumin 3.3 L COVID-19 Source Nasopharynx SARS-CoV-2 (PCR) Negative Influenza Type A (PCR) Negative Influenza Type B (PCR) Negative RSV (PCR) Negative Last Vital Signs Temp 37.0 C 06/07/24 12:14 Pulse 91 H 06/07/24 14:31 Resp 20 06/07/24 14:50 BP 128/75 07/07/24 14:31 Pulse Ox 96 06/07/24 14:58 PAWSS Have you Been Recently Intoxicated or Drunk Within the Last 30 days?: No Have you Ever Experienced Previous Episodes of Alcohol Withdrawal?: No Have you ever Experienced Withdrawal Seizures?: No Have you ever Experienced Delirium Tremens(DT)s?: No Have you ever undergone Alcohol Rehabilitation Treatment (i.e, inpt ot outpatient treatment programs)?: No Have you ever Experienced Blackouts?: No Have you ever Combined Alcohol with other Downers within the last 90 days?: No Have you ever Combined Alcohol with any other Substance of Abuse during the last 90 days?: No Positive Blood Alcohol level on Presentation? [PCS.BAL]: No Evidence of Increased Autonomic Activity (i.e. HR>120, tremor, sweating, agitation, nausea)?: No Result: 0 Time Spent Time spent with Patient: >75 minutes Time was spent: preparing to see the patient(eg.review tests), obtaining and/or reviewing separately otained hiistory, ordering medications,tests, procedures, referring, communicating with other health skin care specialist, indepentently interpreting results, counseling the patient and care coordination
--- NOTE | 2024-06-07 15:37 | ED.GENADUL_ITS ---
Discharge Plan Disposition Patient Disposition: Admit to [facility] Condition: Serious Condition: Stable Discharge Details Chief Complaint: Nausea/Vomit/Diar Clinical Impression: Respiratory failure, COPD (chronic obstructive pulmonary disease) Admit Date/Time: 06/07/24 15:40 Admit Provider: Luigi Renteria Attending Provider: Luigi Renteria Primary Care Provider: Ashanti Thakkar ED Provider: Sayra Delaney Discharge Instructions Activity:: Activity as Tolerated Equipment/Supplies:: No Equipment Needed Diet:: As Tolerated Discharge Orders Discharge Orders: Discharge Order (Routine); Ordered 06/08/24 Ordered By: Nina Balbuena Discharge Data Discharge Date/Time-TO BE ENTERED AT DEPARTURE: 06/07/24 17:33 HPI General Date/Time Provider Initiated Documentation: 06/07/24 11:58 . HPI Narrative: This 58-year-old female presents with nausea and vomiting since Saturday with weakness and lightheadedness. Patient reports cough and some shortness of breath. Family is sick with similar symptoms, however she has not been improving in fact she feels worse today which is why she presents. Describes shortness of breath with ambulation. Denies any exertional chest pain. Related Data Home Medications Medication Instructions Recorded Confirmed albuterol sulfate 90 mcg/actuation 1 - 2 puff inhalation Q4-6H PRN ##1 04/24/19 06/07/24 aerosol inhaler (ProAir HFA) acetaminophen 500 mg capsule 1,000 mg (2 x 500 mg) PO Q8H PRN 03/29/21 06/07/24 PRN #90 caps ibuprofen 600 mg tablet 600 mg PO TID PRN pain #30 tabs 03/29/21 06/07/24 trazodone 100 mg tablet 200 mg (2 x 100 mg) PO HS PRN 10/18/22 06/07/24 insomnia #180 tab-caps lisinopril 5 mg tablet See Rx Instructions .Route 08/07/23 06/07/24 .COMPLEX #90 tabs atorvastatin 40 mg tablet See Rx Instructions .Route 10/14/23 06/07/24 .COMPLEX #90 tabs hydrochlorothiazide 25 mg tablet 25 mg PO QAM #90 tab-caps 10/31/23 06/07/24 celecoxib 100 mg capsule (Celebrex) 100 mg PO BID #60 caps 05/09/24 06/07/24 venlafaxine 150 mg 150 mg PO DAILY #90 tab-caps 05/11/24 06/07/24 capsule,extended release 24 hr prednisone 20 mg tablet 40 mg (2 x 20 mg) PO DAILY #8 tabs 06/08/24 Previous Rx's Medication Instructions Recorded albuterol sulfate 90 mcg/actuation 1 - 2 puff inhalation Q4-6H PRN ##1 04/24/19 aerosol inhaler (ProAir HFA) acetaminophen 500 mg capsule 1,000 mg (2 x 500 mg) PO Q8H PRN 03/29/21 PRN #90 caps ibuprofen 600 mg tablet 600 mg PO TID PRN pain #30 tabs 03/29/21 trazodone 100 mg tablet 200 mg (2 x 100 mg) PO HS PRN 10/18/22 insomnia #180 tab-caps lisinopril 5 mg tablet See Rx Instructions .Route 08/07/23 .COMPLEX #90 tabs atorvastatin 40 mg tablet See Rx Instructions .Route 10/14/23 .COMPLEX #90 tabs hydrochlorothiazide 25 mg tablet 25 mg PO QAM #90 tab-caps 10/31/23 celecoxib 100 mg capsule (Celebrex) 100 mg PO BID #60 caps 05/09/24 venlafaxine 150 mg 150 mg PO DAILY #90 tab-caps 05/11/24 capsule,extended release 24 hr prednisone 20 mg tablet 40 mg (2 x 20 mg) PO DAILY #8 tabs 06/08/24 Allergies Allergy/AdvReac Type Severity Reaction Status Date / Time bupropion HCl AdvReac Intermediate Agitation, Verified 06/07/24 11:52 [From Wellbutrin] nausea General Stated Complaint: Nausea/Vomit/Diar WANDA: 3 Exam Narrative Exam Narrative: Alert, oriented, no acute distress, lungs with wheezing throughout, tachypnea, mild respiratory distress, cardiac rate rhythm regular, no abdominal tenderness, no peripheral edema or calf swelling or tenderness, distal pulses intact alert and oriented x 4 Course Vital Signs Vital signs: Vital Signs Temperature 36.8 C 06/07/24 11:50 Pulse 110 H 06/07/24 11:50 Respiratory Rate 18 06/07/24 11:50 Blood Pressure 121/82 06/07/24 11:50 Pulse Oximetry 99 06/07/24 11:50 Temperature 37.0 C 06/07/24 12:14 Temperature Source Temporal Artery Scan 06/07/24 12:14 Pulse 91 H 06/07/24 14:31 Pulse 97 H 06/07/24 14:50 Respiratory Rate 20 06/07/24 14:50 Respiratory Effort Normal, Non-Labored 06/07/24 12:10 Blood Pressure 128/75 06/07/24 14:31 Blood Pressure Mean 89 06/07/24 14:31 Blood Pressure Position Sitting 06/07/24 11:50 Pulse Oximetry 96 06/07/24 14:58 Oxygen Delivery Method Nasal Cannula 06/07/24 14:58 Oxygen Flow Rate 3 06/07/24 14:58 Pain Level 0 06/07/24 11:50 Lab/Test Results Lab/Test Results: 06/07/24 15:26 Blood Blood Culture - Pending 06/07/24 15:18 Blood Blood Culture - Pending Laboratory Tests Range/Units 06/07/24 06/07/24 06/07/24 12:36 13:49 13:54 WBC (4.4-10.8) 10^3/uL 9.92 RBC (3.93-5.22) 10^6/uL 4.56 Hgb (11.2-15.7) g/dL 14.2 Hct (36.0-46.0) % 41.5 MCV (80-95) fL 91 MCH (27.0-33.0) pg 31.1 MCHC (32.0-36.0) % 34.2 RDW (11.7-14.6) % 12.9 Plt Count (130-400) 10^3/uL 267 MPV (8.0-11.0) fL 9.7 Immature Gran % % 0.2 Neutrophils % % 76.2 Lymphocytes % % 14.8 Monocytes % % 8.2 Eosinophils % % 0.2 Basophils % % 0.4 Nucleated RBC % (0.0-0.3) % 0.0 Absolute Neutrophils (1.2-6.7) 10^3/uL 7.56 H Absolute Lymphocytes (1.2-3.4) 10^3/uL 1.47 Absolute Monocytes (0.1-0.8) 10^3/uL 0.81 H Absolute Eosinophils (0.0-0.7) 10^3/uL 0.02 Absolute Basophils (0.0-0.2) 10^3/uL 0.04 VBG pH (7.31-7.41) 7.46 H VBG pCO2 (41-51) mmHg 41 VBG pO2 mmHg 31 VBG HCO3 (23-28) mmol/L 29 H VBG Total CO2 (24-29) mmol/L 30 H VBG O2 Saturation % 63 VBG Base Excess (-2-3) mmol/L 5 H Sodium (136-145) mmol/L 139 Potassium (3.5-5.1) mmol/L 2.8 L* Chloride (98-107) mmol/L 96 L Carbon Dioxide (21.0-32.0) mmol/L 32.3 H Anion Gap (3-11) mmol/L 10.7 BUN (7-18) mg/dL 10 Creatinine (0.55-1.02) mg/dL 0.7 Est GFR (CKD-EPI 2020) (mL/min/1.73m2) 101.44 Glucose (74-106) mg/dL 108 H Calcium (8.5-10.1) mg/dL 9.2 Magnesium (1.8-2.4) mg/dL 2.1 Total Bilirubin (0.2-1.0) mg/dL 0.78 AST (15-37) U/L 38 H ALT (14-59) U/L 36 Alkaline Phosphatase (46-116) U/L 95 Total Protein (6.4-8.2) g/dL 8.2 Albumin (3.4-5.0) g/dL 3.3 L COVID-19 Source Nasopharynx SARS-CoV-2 (PCR) (Negative) Negative Influenza Type A (PCR) (Negative) Negative Influenza Type B (PCR) (Negative) Negative RSV (PCR) (Negative) Negative Medical Decision Making 58-year-old female presenting with weakness lightheadedness, and shortness of breath. Denies any fever or chills. Flu, COVID, RSV negative, no evidence of obvious pneumonia on x-ray. Patient is notably hypoxic however initially on presentation was 99%, after nebs she is 80% she remains between 85 and 90% throughout this encounter. When she ambulates she desats to 85%. Patient has received 3 DuoNebs and actually aeration sounds improved on respiratory exam. She is also received prednisone and a 3-hour observation, at this time I think she needs admission for respiratory failure, likely in the presence of COPD exacerbation with chronic tobacco use. She is requiring 2 L of oxygen. She does not have significant risk factors for PE and is not tachycardic with significant wheezing, I have very low suspicion that this is a pulmonary embolism. I will order ceftriaxone and Doxy to empirically cover patient for pneumonia versus bronchitis, Solu-Medrol 125, 3 albuterol's. Case was discussed with admitting hospitalist he will admit patient to his service for continued respiratory therapy and oxygen supplementation. Case was discussed with Dr. Chapin who accepts patient to his service at this time. Quality:[facility] Health Related Social Needs: No Data to Display Critical Care Time Critical Care Time Attestation: 35 minutes of critical care time secondary to acute hypoxemic respiratory failure requiring oxygen supplementation, DuoNebs administration, Solu-Medrol, antibiotics, and ultimately admission to the hospital with telemetry monitoring. ON LICENSE OF [facility] All Active Problems (Updated 06/08/24 @ 20:08 by SHAYAN Singh) COPD (chronic obstructive pulmonary disease) (Chronic) Respiratory failure (Acute) Hyperlipidemia (Acute) Hypokalemia (Acute) On deep vein thrombosis (DVT) prophylaxis (Acute) Tobacco abuse (Acute) Depression (Chronic) COPD exacerbation (Acute) Shortness of breath (Acute) Tear of lateral meniscus of right knee (Acute) Right knee pain (Acute) Right ankle sprain (Acute) Arthritis of carpometacarpal (CMC) joint of left thumb (Chronic) Injected: 12/21/2019; Trapezial Resection: 05/10/2020 Asthma (Chronic) Anxiety and depression (Chronic) Essential hypertension (Chronic 08/31/16) Other and unspecified hyperlipidemia (Chronic 09/28/16) 07/2019 labs: LDL >190 --> started high intensity statin Insomnia (Chronic 08/31/16) Tobacco use disorder (Chronic) Medical History COVID-19 (~01/2021) Hyperplastic colon polyp De Quervain's tenosynovitis, left Surgical History History of section x3 in 1986, 1989, & 1992 at [facility] & [facility] History of appendectomy (~1990) Status post arthroscopy of left shoulder (03/29/21) s/p distal clavicle excision, extensive debridement, biceps tenodesis, acromioplasty Hysterectomy, Total Abdominal (06/02/08) Dr. Nisa Orellana. For chronic pelvic pain & dysmenorrhea. Endometriosis surgery x2 Dr. Perrin Cholecystectomy Family History Mother Arthritis Mental disorder Anxiety Father , [place] at age 40. Myocardial infarction Sister Substance abuse H/o heroin abuse Sister Mental disorder Depression Grandmother Colon cancer Grandmother , at age 70. Diabetes Breast cancer Social History Smoking/Tobacco Use Status: Current every day Tobacco Type: cigarettes Smoking packs per day: 1 Smoking cigarettes per day: 20.0 Years smoked: 30 Smoking pack- years: 30.00 Smoking risk assessment performed?: Yes Alcohol Intake: current Alcohol Intake frequency: 0-2 drinks per day Alcohol type: wine Drug use: Never Substance use type: does not use Adopted: No Caregiver/Support person: No Foster care: No Household members: significant other and children Housing: house Number of Children: 3 number of grandchildren: 2 Communication Needs: None Education Level: college Do you need help understanding health information?: Never 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 Pets and animals: Yes Pets and animals: cat(s), dog(s) and bird(s) Sexually active: Yes Do you think of yourself as: straight/heterosexual Current gender identity: female What is your relationship status?: living with partner How often do you talk on the phone with friends or family?: three or more times per week How often do you get together with friends or relatives?: once per week Do you belong to any clubs or organized social groups?: no Panel score (0-1 are the most socially isolated patients): 2 What type of physical activity do you participate in: walking Duration: 15-30 minutes/day Frequency: 3-4 times per week Ibeth/Episcopalian: Latter-Day Special ibeth needs: No Seatbelt use: always Drive intox or ride w/intox charter bus driver: No Water heater temp set <120 deg: Yes Working smoke detector in home: Yes Fire extinguisher in home: Yes Carbon monox detector in home: Yes Firearms in home: Yes Firearms unloaded and locked: Yes Do you feel safe at home: Yes Do you feel safe in your relationship?: Yes History History 3 Para Hx # Term Pregnancies 3 Multiple births Hx # Pregnancies Ectopic pregnancies AB induced Hx Number of Living Children 3 AB spontaneous PAWSS Have you Been Recently Intoxicated or Drunk Within the Last 30 days?: No Have you Ever Experienced Previous Episodes of Alcohol Withdrawal?: No Have you ever Experienced Withdrawal Seizures?: No Have you ever Experienced Delirium Tremens(DT)s?: No Have you ever undergone Alcohol Rehabilitation Treatment (i.e, inpt ot outpatient treatment programs)?: No Have you ever Experienced Blackouts?: No Have you ever Combined Alcohol with other Downers within the last 90 days?: No Have you ever Combined Alcohol with any other Substance of Abuse during the last 90 days?: No Positive Blood Alcohol level on Presentation? [PCS.BAL]: No Evidence of Increased Autonomic Activity (i.e. HR>120, tremor, sweating, agitation, nausea)?: No Result: 0
[2024-06-07 15:38] LABS: Lactate 0.8 mmol/L (0.9-1.7)
[2024-06-07] MEDS: cefTRIAXone 2 GM/50 ML BAG IVPB (15:44)
[2024-06-07 16:37] LABS: Procalcitonin < 0.1 ng/mL
[2024-06-07] MEDS: methylPREDNISolone SUCC 125 MG VIAL IVP (16:37)
[2024-06-07] MEDS: DOXYCYCLINE 100 MG in Normal Saline 100 ML IVPB (16:38)
--- NOTE | 2024-06-07 17:00 | W.PC.ACHO ---
Registration Status: REG ER Primary Language: Preferred Language: Croatian ED Information & Data Chief Complaint Nausea/Vomit/Diar 06/07/24 15:38 Triage Note Pt states ongoing n/v since 06/07/24 11:50 saturday following URI. Denies belly pain. Home covid test negative. Medical / Surgical History (Last Reviewed 05/01/24 @ 08:16 by Kane Boss MD) COVID-19 (~01/2021) Hyperplastic colon polyp De Quervain's tenosynovitis, left (Last Reviewed 05/01/24 @ 08:16 by Kane Boss MD) History of section History of appendectomy (~1990) Status post arthroscopy of left shoulder (03/29/21) Hysterectomy, Total Abdominal (06/02/08) Endometriosis surgery Cholecystectomy Most Recent Vital Signs Temperature 37.0 C 06/07/24 12:14 Temperature Source Temporal Artery Scan 06/07/24 12:14 Pulse 93 H 06/07/24 16:01 Pulse 91 H 06/07/24 16:40 Respiratory Rate 16 06/07/24 16:40 Respiratory Effort Normal, Non-Labored 06/07/24 12:10 Blood Pressure 133/69 06/07/24 16:01 Blood Pressure Mean 89 06/07/24 16:01 Blood Pressure Position Sitting 06/07/24 11:50 Pulse Oximetry 95 06/07/24 16:40 Oxygen Delivery Method Nasal Cannula 06/07/24 14:58 Oxygen Flow Rate 3 06/07/24 14:58 Pain Level 0 06/07/24 11:50 Allergies bupropion HCl [From Wellbutrin] Adverse Reaction (Intermediate, Verified 06/07/24 11:52) Agitation, nausea Precautions Isolation PUI 06/07/24 12:10 Active Medications Generic Name Dose Route Start Last Admin Trade Name Freq PRN Reason Stop Dose Admin Potassium Chloride 20 meq in 100 mls @ 50 mls/hr 06/07/24 13:15 06/07/24 15:04 IVINF 06/07/24 17:14 0 mls/hr Q2H MANUEL Infusion Sodium Chloride 1,000 mls @ 1,000 mls/hr 06/07/24 16:38 06/07/24 15:48 Saline 1000ml Bag IV 06/07/24 17:37 1,000 mls/hr BOLUS ONE Administration IV IV Catheter Type [Left Peripheral IV Antecubital] IV Catheter Gauge [Left 18 Antecubital] Diagnostics 06/07/24 06/07/24 06/07/24 Range/Units 15:26 15:18 13:54 WBC (4.4-10.8) 10^3/uL RBC (3.93-5.22) 10^6/uL Hgb (11.2-15.7) g/dL Hct (36.0-46.0) % MCV (80-95) fL MCH (27.0-33.0) pg MCHC (32.0-36.0) % RDW (11.7-14.6) % Plt Count (130-400) 10^3/uL MPV (8.0-11.0) fL Immature Gran % % Neutrophils % % Lymphocytes % % Monocytes % % Eosinophils % % Basophils % % Nucleated RBC % (0.0-0.3) % Absolute Neutrophils (1.2-6.7) 10^3/uL Absolute Lymphocytes (1.2-3.4) 10^3/uL Absolute Monocytes (0.1-0.8) 10^3/uL Absolute Eosinophils (0.0-0.7) 10^3/uL Absolute Basophils (0.0-0.2) 10^3/uL VBG pH (7.31-7.41) VBG pCO2 (41-51) mmHg VBG pO2 mmHg VBG HCO3 (23-28) mmol/L VBG Total CO2 (24-29) mmol/L VBG O2 Saturation % VBG Base Excess (-2-3) mmol/L VBG Lactate 0.8 L (0.9-1.7) mmol/L Sodium (136-145) mmol/L Potassium (3.5-5.1) mmol/L Chloride (98-107) mmol/L Carbon Dioxide (21.0-32.0) mmol/L Anion Gap (3-11) mmol/L BUN (7-18) mg/dL Creatinine (0.55-1.02) mg/dL Est GFR (CKD-EPI 2020) (mL/min/1.73m2) Glucose (74-106) mg/dL Calcium (8.5-10.1) mg/dL Magnesium (1.8-2.4) mg/dL Total Bilirubin (0.2-1.0) mg/dL AST (15-37) U/L ALT (14-59) U/L Alkaline Phosphatase (46-116) U/L Total Protein (6.4-8.2) g/dL Albumin (3.4-5.0) g/dL Procalcitonin < 0.1 ng/mL COVID-19 Source Nasopharynx SARS-CoV-2 (PCR) Negative (Negative) Influenza Type A (PCR) Negative (Negative) Influenza Type B (PCR) Negative (Negative) RSV (PCR) Negative (Negative) 06/07/24 06/07/24 Range/Units 13:49 12:36 WBC 9.92 (4.4-10.8) 10^3/uL RBC 4.56 (3.93-5.22) 10^6/uL Hgb 14.2 (11.2-15.7) g/dL Hct 41.5 (36.0-46.0) % MCV 91 (80-95) fL MCH 31.1 (27.0-33.0) pg MCHC 34.2 (32.0-36.0) % RDW 12.9 (11.7-14.6) % Plt Count 267 (130-400) 10^3/uL MPV 9.7 (8.0-11.0) fL Immature Gran % 0.2 % Neutrophils % 76.2 % Lymphocytes % 14.8 % Monocytes % 8.2 % Eosinophils % 0.2 % Basophils % 0.4 % Nucleated RBC % 0.0 (0.0-0.3) % Absolute Neutrophils 7.56 H (1.2-6.7) 10^3/uL Absolute Lymphocytes 1.47 (1.2-3.4) 10^3/uL Absolute Monocytes 0.81 H (0.1-0.8) 10^3/uL Absolute Eosinophils 0.02 (0.0-0.7) 10^3/uL Absolute Basophils 0.04 (0.0-0.2) 10^3/uL VBG pH 7.46 H (7.31-7.41) VBG pCO2 41 (41-51) mmHg VBG pO2 31 mmHg VBG HCO3 29 H (23-28) mmol/L VBG Total CO2 30 H (24-29) mmol/L VBG O2 Saturation 63 % VBG Base Excess 5 H (-2-3) mmol/L VBG Lactate (0.9-1.7) mmol/L Sodium 139 (136-145) mmol/L Potassium 2.8 L* (3.5-5.1) mmol/L Chloride 96 L (98-107) mmol/L Carbon Dioxide 32.3 H (21.0-32.0) mmol/L Anion Gap 10.7 (3-11) mmol/L BUN 10 (7-18) mg/dL Creatinine 0.7 (0.55-1.02) mg/dL Est GFR (CKD-EPI 2020) 101.44 (mL/min/1.73m2) Glucose 108 H (74-106) mg/dL Calcium 9.2 (8.5-10.1) mg/dL Magnesium 2.1 (1.8-2.4) mg/dL Total Bilirubin 0.78 (0.2-1.0) mg/dL AST 38 H (15-37) U/L ALT 36 (14-59) U/L Alkaline Phosphatase 95 (46-116) U/L Total Protein 8.2 (6.4-8.2) g/dL Albumin 3.3 L (3.4-5.0) g/dL Procalcitonin ng/mL COVID-19 Source SARS-CoV-2 (PCR) (Negative) Influenza Type A (PCR) (Negative) Influenza Type B (PCR) (Negative) RSV (PCR) (Negative) 06/07/24 15:26 Blood Culture - Pending Blood 06/07/24 15:18 Blood Culture - Pending Blood Intake and Output - 24 Hour Total 06/07/24 11:39 thru 06/07/24 16:14 Intake Total 1125.833 Balance 1125.833 Weight 69.853 kg Intake: IV 1125.833 Other: Emesis Description None Falls Risk Assessment History of Falls No History 06/07/24 12:13 Contributing Factors No Factors 06/07/24 12:13 Ambulatory Aids Independent 06/07/24 12:13 Tubes/Lines None 06/07/24 12:13 Gait Evaluation No gait disturbance 06/07/24 12:13 Cognition No cognitive impairment 06/07/24 12:13 Fall Total Score 0 06/07/24 12:13 Level of Risk Standard/Low Risk 06/07/24 12:13 Problems (Last Reviewed 05/01/24 @ 08:16 by Kane Boss MD) On deep vein thrombosis (DVT) prophylaxis (Acute) Tobacco abuse (Acute) Depression (Chronic) COPD exacerbation (Acute) Shortness of breath (Acute) v v v v v v v v v Sending and/or Receiving Nurses: Please use comment section below to note any information pertinent to the patient hand-off not included above. Information / Comments: Patient arrived to ER with complaints of nausea, vomiting and decrease in appetite since Saturday. negative covid test at home and at ER, currently requiring 3 liters of oxygen, baseline room air, history of smoking. Received 2 liters of NS, nebulizer treatments, IV and PO potassium, IV steriods. Chest xray complete, cultures pending. Report received from:CINTIA French
--- NOTE | 2024-06-07 17:48 | RESPIRATORY ---
RT Initial Evalutation/Assessment Start: 06/07/24 17:20 Freq: .q shift and prn Status: Active Protocol: Document 06/07/24 17:24 MF (Rec: 06/07/24 17:47 MF [id number]) RT Assessment Pulmonary History Pulmonary History Asthma Smoking History Smoking/Tobacco Use Status Current every day Tobacco Type cigarettes Years smoked 30 Smoking packs per day 1 OXYGEN HISTORY: CPAP Can use home machine No BIPAP Can you home machine No Trilogy/AVAPS Can use home machine No Current Respiratory Symptoms Current Respiratory Symptoms Cough,Shortness of breath Respiratory Breath Sounds Breath Sounds Any abnormal sounds, decreased breath sounds Pulse Rate <100 Respiratory Rate <18 Shortness of Breath On exertion Respiratory Therapy Score Total 2 Assessment and Plan RT Treatment Protocol Bronchodilator Aerosol Therapy Protocol Note Patient takes Albuterol inhaler PRN at home when sick. Patient stated she has not had to use inhaler in a few years.
[2024-06-07] MEDS: Enoxaparin 40 MG/0.4 ML SYR SC (18:53)
--- NOTE | 2024-06-07 19:40 | NUR.NOTE ---
Nursing Note: Patient arrived to floor alert and orientated, denied shortness of breath at rest, breathing was non labored, see flow sheet for vitals. Patient resting comfortably in bed. Call brewer within reach
[2024-06-07] MEDS: guaiFENesin 600 MG TABCR PO (20:29)
[2024-06-07] MEDS: Acetaminophen 500 MG TAB 1000 MG PO (20:29)
[2024-06-07] MEDS: Pantoprazole 40 MG VIAL IVP (20:30)
[2024-06-07] MEDS: Normal Saline Flush 10 ML SYR IVP (20:30)
[2024-06-07] MEDS: Lactated Ringers 1,000 ML 100 ML IV (20:34)
[2024-06-07] MEDS: traZODone 100 MG TAB 200 MG PO (22:18)
[2024-06-08] VITALS: BP 109/73; PULSE 80; RESP 16; TEMP 35.9; O2SAT 95
[2024-06-08] MEDS: Acetaminophen 500 MG TAB 1000 MG PO ×2 (02:13→07:48)
[2024-06-08 03:17] VITALS: BP 118/74; PULSE 73; RESP 18; TEMP 36.3; O2SAT 97
[2024-06-08 06:43] LABS: Abs Immature Grans 0.03 10^3/uL (0.0-0.06); Absolute Basophil Count 0.03 10^3/uL (0.0-0.2); Absolute Monocyte Count 0.66 10^3/uL (0.1-0.8); Basophils % 0.2 %; HGB 12.9 g/dL (11.2-15.7); Immature Grans % 0.2 %; Lymphocytes % 8.7 %; MCH 31.2 pg (27.0-33.0); MCHC 33.9 % (32.0-36.0); MCV 92 fL (80-95); MPV 10.5 fL (8.0-11.0); Monocytes % 5.1 %; Neutrophils % 85.8 %; Platelet Count 297 10^3/uL (130-400); RBC 4.13 10^6/uL (3.93-5.22); RDW 12.9 % (11.7-14.6); RDW-SD 43.7 fL; WBC 12.94 10^3/uL (4.4-10.8)
[2024-06-08 06:47] LABS: Absolute Lymphocyte Count 1.13 10^3/uL (1.2-3.4)
[2024-06-08 07:03] LABS: ALT 30 U/L (14-59); AST 26 U/L (15-37); Albumin 2.9 g/dL (3.4-5.0); Alkaline Phosphatase 84 U/L (46-116); Anion Gap 9.7 mmol/L (3-11); BUN 11 mg/dL (7-18); Bilirubin, Total 0.33 mg/dL (0.2-1.0); CO2 28.3 mmol/L (21.0-32.0); CREATININE 0.7 mg/dL (0.55-1.02); Calcium 8.8 mg/dL (8.5-10.1); Chloride 103 mmol/L (98-107); Estimated GFR 101.44 (mL/min/1.73m2); Glucose 152 mg/dL (74-106); Potassium 3.4 mmol/L (3.5-5.1); Sodium 141 mmol/L (136-145); Total Protein 7.2 g/dL (6.4-8.2)
[2024-06-08 07:33] VITALS: BP 123/89; PULSE 65; RESP 18; TEMP 36.6; O2SAT 94
[2024-06-08] MEDS: Lisinopril 5 MG TAB PO (07:48)
[2024-06-08] MEDS: Pantoprazole 40 MG TABCR PO (07:49)
[2024-06-08] MEDS: guaiFENesin 600 MG TABCR PO (07:49)
[2024-06-08] MEDS: predniSONE 20 MG TAB 40 MG PO (07:49)
[2024-06-08] MEDS: Venlafaxine 150 MG CAPCR PO (07:49)
[2024-06-08] MEDS: Atorvastatin 40 MG TAB PO (07:50)
[2024-06-08] MEDS: Normal Saline Flush 10 ML SYR IVP (08:00)
[2024-06-08] MEDS: Potassium Chloride 10 MEQ CAPCR 40 MEQ PO (08:03)
[2024-06-08 10:07] LABS: Magnesium 2.2 mg/dL (1.8-2.4)
--- NOTE | 2024-06-08 10:08 | PDOC.CMIN ---
Date of service: 06/08/24 Time of Service: 10:08 Care Management Initial Assmt Initial Assessment Reason for Hospitalization: shortness of breath/ COPD Functional Status/Living Situation Town of Residence: [place] Employment Status: Employed (works at [employer]) Instrumental Activities of Daily Living (ADLs): Independent Medications Medication Management: No Issues/Barriers identified Advance Directives Advance Directives: Do you have an Advance Directive: N 07/16/13 12:29 AD On File at [facility]: N 07/16/13 12:29 Date Asked 06/07/24 06/07/24 12:11 AD Date Reviewed COLST On File at [facility] No 06/07/24 15:58 COLST Date Scanned Code Status Resuscitation Status Full Code Insurance Coverage/Financial Issues Insurance: BC/BS of Pr ACO Member: No Care Team Visit Care Team Role Provider Type Ashanti Thakkar NP Primary Care Provider NURSE PRACTITIONER SHAYAN Singh Emergency Provider PH[employer]ICIANS FEATH[employer] WASHER Luigi Renteria Admit Provider [facility] STAFF PHYSICIAN Attending Provider Discharge Potential Discharge Needs: PCP F/U Appt Anticipated Barriers to Discharge: None Identified Patient/Family Education Needs: Review discharge instructions, discuss Ask Me Three Transportation: Private vehicle Plan: Anticipate Yanet will be discharged home with no new services when medically stable. She will follow up with her PCP and plan of care and transport with family. CM will follow and continue to assess for discharge needs. PFSH All Active Problems (Updated 06/07/24 @ 19:43 by Olivia Monsalve APRN) Hyperlipidemia (Acute) Hypokalemia (Acute) On deep vein thrombosis (DVT) prophylaxis (Acute) Tobacco abuse (Acute) Depression (Chronic) COPD exacerbation (Acute) Shortness of breath (Acute) Tear of lateral meniscus of right knee (Acute) Right knee pain (Acute) Right ankle sprain (Acute) Arthritis of carpometacarpal (CMC) joint of left thumb (Chronic) Injected: 12/21/2019; Trapezial Resection: 05/10/2020 Asthma (Chronic) Anxiety and depression (Chronic) Essential hypertension (Chronic 08/31/16) Other and unspecified hyperlipidemia (Chronic 09/28/16) 07/2019 labs: LDL >190 --> started high intensity statin Insomnia (Chronic 08/31/16) Tobacco use disorder (Chronic) Medical History COVID-19 (~01/2021) Hyperplastic colon polyp De Quervain's tenosynovitis, left Surgical History History of section x3 in 1986, 1989, & 1992 at [place] [facility] History of appendectomy (~1990) Status post arthroscopy of left shoulder (03/29/21) s/p distal clavicle excision, extensive debridement, biceps tenodesis, acromioplasty Hysterectomy, Total Abdominal (06/02/08) Dr. Nisa Orellana. For chronic pelvic pain & dysmenorrhea. Endometriosis surgery x2 Dr. Perrin Cholecystectomy Family History Mother Arthritis Mental disorder Anxiety Father , [place] at age 40. Myocardial infarction Sister Substance abuse H/o heroin abuse Sister Mental disorder Depression Grandmother Colon cancer Grandmother , at age 70. Diabetes Breast cancer Social History Smoking/Tobacco Use Status: Current every day Tobacco Type: cigarettes Smoking packs per day: 1 Smoking cigarettes per day: 20.0 Years smoked: 30 Smoking pack-years: 30.00 Smoking risk assessment performed?: Yes Alcohol Intake: current Alcohol Intake frequency: 0-2 drinks per day Alcohol type: wine Drug use: Never Substance use type: does not use Adopted: No Caregiver/Support person: No Foster care: No Household members: significant other and children Housing: house Number of Children: 3 number of grandchildren: 2 Communication Needs: None Education Level: college Do you need help understanding health information?: Never 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[employer] Pets and animals: Yes Pets and animals: cat(s), dog(s) and bird(s) Sexually active: Yes Do you think of yourself as: straight/heterosexual Current gender identity: female What is your relationship status?: living with partner How often do you talk on the phone with friends or family?: three or more times per week How often do you get together with friends or relatives?: once per week Do you belong to any clubs or organized social groups?: no Panel score (0-1 are the most socially isolated patients): 2 What type of physical activity do you participate in: walking Duration: 15-30 minutes/day Frequency: 3-4 times per week Ibeth/Evangelical: Catholic Special ibeth needs: No Seatbelt use: always Drive intox or ride w/intox short haul driver: No Water heater temp set <120 deg: Yes Working smoke detector in home: Yes Fire extinguisher in home: Yes Carbon monox detector in home: Yes Firearms in home: Yes Firearms unloaded and locked: Yes Do you feel safe at home: Yes Do you feel safe in your relationship?: Yes History History 3 Para Hx # Term Pregnancies 3 Multiple births Hx # Pregnancies Ectopic pregnancies AB induced Hx Number of Living Children 3 AB spontaneous SDOH(Care Management) Screening Will the Patient Participate in the Screening?: Unable to obtain
[2024-06-08 10:12] LABS: Lab Add On Test done
[2024-06-08 11:23] VITALS: BP 112/74; PULSE 75; RESP 18; TEMP 36.6; O2SAT 95
--- NOTE | 2024-06-08 11:38 | DSE_ITS ---
Date of service: 06/08/24 Time of Service: 11:38 DS: Diagnosis Discharge Diagnosis (1) Shortness of breath: Status: Acute (2) COPD exacerbation: Status: Acute (3) Depression: Status: Chronic (4) Tobacco abuse: Status: Acute (5) Hypokalemia: Status: Acute (6) Hyperlipidemia: Status: Acute Discharge Plan Disposition Patient Disposition: Home Condition: Stable Discharge Details Reason For Visit: copd exacerbation Admit Date/Time: 06/07/24 15:40 Admit Provider: Luigi Renteria Attending Provider: Luigi Renteria Primary Care Provider: Ashanti Thakkar Hospital Course Hospital Course: This is a 58-year-old female patient past medical history significant for tobacco abuse asthma hypertension who presented to the emergency department with complaints of shortness of breath. Her workup showed no evidence of a pneumonia. She did have a negative procalcitonin and chest x-ray. She was started on prednisone and was admitted secondary to oxygen requirements. Overnight she was weaned off oxygen with improvement in her symptoms. She is stable for discharge to home and will complete a steroid burst. She should follow-up with her primary [facility] Meds and New Rx's Prescriptions: New prednisone 20 mg Tablet 40 mg PO DAILY Qty: 8 0RF Continued albuterol sulfate [ProAir HFA] 90 mcg/actuation HFA aerosol inhaler 1 - 2 puff Inhalation Q4-6H PRN Qty: 1 3RF Rx Instructions: DISPENSE ALBUTEROL INHALER BRAND COVERED BY INSURANCE trazodone 100 mg tablet 200 mg PO HS PRN (Reason: insomnia) Qty: 180 3RF lisinopril 5 mg tablet See Rx Instructions .ROUTE .COMPLEX Qty: 90 3RF Dose Instruction: TAKE 1 TABLET BY MOUTH DAILY Rx Instructions: TAKE 1 TABLET BY MOUTH DAILY atorvastatin 40 mg tablet See Rx Instructions .ROUTE .COMPLEX Qty: 90 3RF Dose Instruction: TAKE ONE TABLET BY MOUTH ONCE DAILY Rx Instructions: TAKE ONE TABLET BY MOUTH ONCE DAILY hydrochlorothiazide 25 mg tablet 25 mg PO QAM Qty: 90 3RF celecoxib [Celebrex] 100 mg capsule 100 mg PO BID Qty: 60 3RF venlafaxine 150 mg capsule,extended release 24hr 150 mg PO DAILY Qty: 90 3RF ibuprofen 600 mg tablet 600 mg PO TID PRN (Reason: pain) Qty: 30 0RF acetaminophen 500 mg capsule 1,000 mg PO Q8H PRN PRNQty: 90 0RF Discharge Instructions Instructions: Wheezing, Acute bronchitis, Quitting smoking Additional Instructions: complete steroids as directed Stand Alone Forms: Nursing Discharge Form Referrals: Erica Fajardo DOCUMENT MANAGER [NURSE PRACTITIONER] - 06/10/24 (Please arrive to your iqra riggins scheduled appointment.) Activity:: Activity as Tolerated Equipment/Supplies:: No Equipment Needed Diet:: As Tolerated Discharge Orders Discharge Orders: Discharge Order (Routine); Ordered 06/08/24 Ordered By: Nina Balbuena Discharge Data Discharge Date/Time-TO BE ENTERED AT DEPARTURE: 06/08/24 13:12 DS: Summary Time Spent with Patient providing and/or coordinating discharge services: Less than 30 minutes Status at Discharge Functional status at discharge: independent ambulation Overall status at discharge: patient is progressing back to baseline Mental Status: mental status grossly normal Speech and Movement: speech and movement normal Mood: congruent mood Affect: normal affect Quality:SDOH Health Related Social Needs: No Data to Display Exam Psych Mental Status: mental status grossly normal Speech and Movement: speech and movement normal Mood: congruent mood Affect: normal affect DS: Data Vitals/I&O Vitals and I&O: Vital Signs Temperature 36.6 C 06/08/24 11:23 Temperature Source Temporal Artery Scan 06/08/24 11:23 Pulse 75 06/08/24 11:23 Pulse Rhythm Regular 06/08/24 07:50 Pulse 91 H 06/07/24 16:40 Respiratory Rate 18 06/08/24 11:23 Respiratory Effort Short of Breath 06/08/24 07:50 Respiratory Depth Shallow 06/08/24 07:50 Respiratory Pattern Normal 06/08/24 07:50 Blood Pressure 112/74 06/08/24 11:23 Blood Pressure Mean 89 06/07/24 16:01 Blood Pressure Position Sitting 06/07/24 11:50 Pulse Oximetry 95 06/08/24 11:23 Oxygen Delivery Method Room Air 06/08/24 11:23 Oxygen Flow Rate 0 06/08/24 11:23 Pain Level 0 06/08/24 00:00 Comment denies shortness of breath, does report pain with deep breaths 06/07/24 17:21 Intake & Output 06/07/24 06/07/24 06/08/24 11:59 23:59 11:59 Intake Total 2225.833 / 2225.833 1350 / 1350 Balance 2225.833 / 2225.833 1350 / 1350 Weight 69.853 kg Intake: IV 2225.833 / 2225.833 1000 / 1000 Oral 350 / 350 Other: Urine Appearance Clear Clear Comment voids independently in toilet Emesis Description None Voiding Methods Toilet Data Completed and Pending Labs on day of discharge: Labs from last 24 hours 06/08/24 06/07/24 06/07/24 06:22 15:26 15:18 WBC 12.94 H RBC 4.13 Hgb 12.9 Hct 38.0 MCV 92 MCH 31.2 MCHC 33.9 RDW 12.9 Plt Count 297 MPV 10.5 Immature Gran % 0.2 Neutrophils % 85.8 Lymphocytes % 8.7 Monocytes % 5.1 Eosinophils % 0.0 Basophils % 0.2 Nucleated RBC % 0.0 Absolute Neutrophils 11.10 H Absolute Lymphocytes 1.13 L Absolute Monocytes 0.66 Absolute Eosinophils 0.00 Absolute Basophils 0.03 VBG pH VBG pCO2 VBG pO2 VBG HCO3 VBG Total CO2 VBG O2 Saturation VBG Base Excess VBG Lactate 0.8 L Sodium 141 Potassium 3.4 L Chloride 103 Carbon Dioxide 28.3 Anion Gap 9.7 BUN 11 Creatinine 0.7 Est GFR (CKD-EPI 2020) 101.44 Glucose 152 H Calcium 8.8 Magnesium 2.2 Total Bilirubin 0.33 AST 26 ALT 30 Alkaline Phosphatase 84 Total Protein 7.2 Albumin 2.9 L Procalcitonin < 0.1 COVID-19 Source SARS-CoV-2 (PCR) Influenza Type A (PCR) Influenza Type B (PCR) RSV (PCR) Add-On Test Request done 06/07/24 06/07/24 06/07/24 13:54 13:49 12:36 WBC 9.92 RBC 4.56 Hgb 14.2 Hct 41.5 MCV 91 MCH 31.1 MCHC 34.2 RDW 12.9 Plt Count 267 MPV 9.7 Immature Gran % 0.2 Neutrophils % 76.2 Lymphocytes % 14.8 Monocytes % 8.2 Eosinophils % 0.2 Basophils % 0.4 Nucleated RBC % 0.0 Absolute Neutrophils 7.56 H Absolute Lymphocytes 1.47 Absolute Monocytes 0.81 H Absolute Eosinophils 0.02 Absolute Basophils 0.04 VBG pH 7.46 H VBG pCO2 41 VBG pO2 31 VBG HCO3 29 H VBG Total CO2 30 H VBG O2 Saturation 63 VBG Base Excess 5 H VBG Lactate Sodium 139 Potassium 2.8 L* Chloride 96 L Carbon Dioxide 32.3 H Anion Gap 10.7 BUN 10 Creatinine 0.7 Est GFR (CKD-EPI 2020) 101.44 Glucose 108 H Calcium 9.2 Magnesium 2.1 Total Bilirubin 0.78 AST 38 H ALT 36 Alkaline Phosphatase 95 Total Protein 8.2 Albumin 3.3 L Procalcitonin COVID-19 Source Nasopharynx SARS-CoV-2 (PCR) Negative Influenza Type A (PCR) Negative Influenza Type B (PCR) Negative RSV (PCR) Negative Add-On Test Request 06/07/24 15:26 Blood Blood Culture - Pending 06/07/24 15:18 Blood Blood Culture - Pending Preliminary micro results at discharge 06/07/24 15:26 Blood Culture - Pending Blood 06/07/24 15:18 Blood Culture - Pending Blood PFSH All Active Problems (Updated 06/07/24 @ 19:43 by Olivia Monsalve APRN) Hyperlipidemia (Acute) Hypokalemia (Acute) On deep vein thrombosis (DVT) prophylaxis (Acute) Tobacco abuse (Acute) Depression (Chronic) COPD exacerbation (Acute) Shortness of breath (Acute) Tear of lateral meniscus of right knee (Acute) Right knee pain (Acute) Right ankle sprain (Acute) Arthritis of carpometacarpal (CMC) joint of left thumb (Chronic) Injected: 12/21/2019; Trapezial Resection: 05/10/2020 Asthma (Chronic) Anxiety and depression (Chronic) Essential hypertension (Chronic 08/31/16) Other and unspecified hyperlipidemia (Chronic 09/28/16) 07/2019 labs: LDL >190 --> started high intensity statin Insomnia (Chronic 08/31/16) Tobacco use disorder (Chronic) Medical History COVID-19 (~01/2021) Hyperplastic colon polyp De Quervain's tenosynovitis, left Surgical History History of section x3 in 1986, 1989, & 1992 at [place] [facility] History of appendectomy (~1990) Status post arthroscopy of left shoulder (03/29/21) s/p distal clavicle excision, extensive debridement, biceps tenodesis, acromioplasty Hysterectomy, Total Abdominal (06/02/08) Dr. Nisa Orellana. For chronic pelvic pain & dysmenorrhea. Endometriosis surgery x2 Dr. Perrin Cholecystectomy Family History Mother Arthritis Mental disorder Anxiety Father , [place] at age 40. Myocardial infarction Sister Substance abuse H/o heroin abuse Sister Mental disorder Depression Grandmother Colon cancer Grandmother , at age 70. Diabetes Breast cancer Social History Smoking/Tobacco Use Status: Current every day Tobacco Type: cigarettes Smoking packs per day: 1 Smoking cigarettes per day: 20.0 Years smoked: 30 Smoking pack- years: 30.00 Smoking risk assessment performed?: Yes Alcohol Intake: current Alcohol Intake frequency: 0-2 drinks per day Alcohol type: wine Drug use: Never Substance use type: does not use Adopted: No Caregiver/Support person: No Foster care: No Household members: significant other and children Housing: house Number of Children: 3 number of grandchildren: 2 Communication Needs: None Education Level: college Do you need help understanding health information?: Never 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 Pets and animals: Yes Pets and animals: cat(s), dog(s) and bird(s) Sexually active: Yes Do you think of yourself as: straight/heterosexual Current gender identity: female What is your relationship status?: living with partner How often do you talk on the phone with friends or family?: three or more times per week How often do you get together with friends or relatives?: once per week Do you belong to any clubs or organized social groups?: no Panel score (0-1 are the most socially isolated patients): 2 What type of physical activity do you participate in: walking Duration: 15-30 minutes/day Frequency: 3-4 times per week Ibeth/Jewish: Sikhism Special ibeth needs: No Seatbelt use: always Drive intox or ride w/intox armored car guard and driver: No Water heater temp set <120 deg: Yes Working smoke detector in home: Yes Fire extinguisher in home: Yes Carbon monox detector in home: Yes Firearms in home: Yes Firearms unloaded and locked: Yes Do you feel safe at home: Yes Do you feel safe in your relationship?: Yes History History 3 Para Hx # Term Pregnancies 3 Multiple births Hx # Pregnancies Ectopic pregnancies AB induced Hx Number of Living Children 3 AB spontaneous Time Spent with Patient Time Spent with Patient: 45-69 minutes Time was spent: preparing to see the patient(eg.review tests), obtaining and/or reviewing separately otained hiistory, ordering medications,tests, procedures, indepentently interpreting results and counseling the patient
--- NOTE | 2024-06-08 18:35 | PDOC.CMPRO ---
Date of service: 06/08/24 Time of Service: 18:35 Care Management Progress Note Progress Note Text Progress Note Text: Yanet was dressed and ready to leave when CM met with her. She was admitted yesterday with a COPD exacerbation, but recovered quickly and was ready for discharge today. She requested a return to work note, which CM provided. Yanet will follow up with her PCP and plan of care and transport with her spouse. Discharge Potential Discharge Needs: PCP F/U Appt Anticipated Barriers to Discharge: None Identified Patient/Family Education Needs: Review discharge instructions, discuss Ask Me Three Transportation: Private vehicle Plan: Yanet will be discharged home with no new services. She will follow up with her community providers and plan of care and transport with family. SDOH(Care Management) Screening Will the Patient Participate in the Screening?: Unable to obtain
== END 2024-06-08 13:12 | disposition home or self-care (01) ==
LOC: ER 15:58 → MS 17:21
PROVIDERS: Nurse Practitioner Acute Care; Admitting Provider Family Medicine; Emergency Provider Physician Assistant; PCP Nurse Practitioner Family; Visit Provider Family Medicine
DX: R06.02 Shortness of breath (principal); J44.1 Chronic obstructive pulmonary disease with (acute) exacerbation; R53.1 Weakness; E87.6 Hypokalemia; R42 Dizziness and giddiness; Z79.899 Other long term (current) drug therapy; F17.210 Nicotine dependence, cigarettes, uncomplicated; E78.00 Pure hypercholesterolemia, unspecified; F41.8 Other specified anxiety disorders; G47.00 Insomnia, unspecified
CPT/HCPCS: 00123; 36410; 36415; 80053; 82805; 84145; 87040; 87637; 93005; 94640; 96361; 96365; 96366; 96367; 96372; 96375; 99291; J1650; 71046; 83605; 83735; 85025; 93010; 94667; 94668; 94760; 99223; 99239; G0378; J0696; J1100; J2405; J2470; J2919; J3480; J7512; J7620

== ENCOUNTER 2025-08-07 10:59 | Emergency (ER) | payer BC, SELFPAY ==
[2025-08-07 11:01] VITALS: BP 139/84; PULSE 94; RESP 16; TEMP 36.7; O2SAT 95
--- NOTE | 2025-08-07 11:15 | W.ED.GENAD ---
Discharge Plan Disposition Patient Disposition: Home Condition: Stable Discharge Details Clinical Impression: Contusion of rib on right side Primary Care Provider: Erica Fajardo ED Provider: Suresh Hylton Home Meds and New Rx's Prescriptions: New lidocaine 5 % adhesive patch,medicated 1 patch topical DAILY Qty: 30 0RF Rx Instructions: leave on most painful area for up to 12 hrs Continued venlafaxine 225 mg tablet extended release 24hr 225 mg PO DAILY Qty: 90 3RF Rx Instructions: Dose increase 08/26/2024 albuterol sulfate [ProAir HFA] 90 mcg/actuation HFA aerosol inhaler 1 - 2 puff Inhalation Q4-6H PRN Qty: 1 3RF Rx Instructions: DISPENSE ALBUTEROL INHALER BRAND COVERED BY INSURANCE atorvastatin 40 mg tablet See Rx Instructions .ROUTE .COMPLEX Qty: 90 3RF Dose Instruction: TAKE ONE TABLET BY MOUTH ONCE DAILY Rx Instructions: TAKE ONE TABLET BY MOUTH ONCE DAILY hydrochlorothiazide 25 mg tablet 25 mg PO QAM Qty: 90 3RF trazodone 100 mg tablet 200 mg PO HS PRN (Reason: insomnia) Qty: 180 3RF lisinopril 5 mg tablet See Rx Instructions .ROUTE .COMPLEX Qty: 90 3RF Dose Instruction: TAKE ONE TABLET BY MOUTH EVERY DAY Rx Instructions: TAKE ONE TABLET BY MOUTH EVERY DAY ibuprofen 600 mg tablet 600 mg PO TID PRN (Reason: pain) Qty: 30 0RF acetaminophen 500 mg capsule 1,000 mg PO Q8H PRN PRNQty: 90 0RF Discharge Instructions Additional Instructions: Your x-ray does not show any broken bones so you likely have a bone bruise which usually heals with time. If not improving in a week follow-up with your primary care provider. If you feel more ill, have severe worsening pain or difficulty breathing return to the emergency department for reevaluation. HPI General Mode of arrival: ambulatory. Date/Time Provider Initiated Documentation: 08/07/25 11:02. Limitations to Documentation: no limitations. Information obtained by: patient. History of Present Illness 59 year old F presents to the emergency department with the chief complaint of right sided chest pain s/p fall, described as moderate, Quality is described as aching, and is localized to the chest. Patient reports no radiation. Patient started experiencing this day(s) and it has been constant. No relieving factors improve symptom(s), No exacerbating factors reported . Patient notes no other symptoms.. Patient did receive the following treatments prior to arrival, none Related Data Home Medications ?Medication ?Instructions ?Recorded ?Confirmed acetaminophen 500 mg capsule 1,000 mg (2 x 500 mg) PO Q8H PRN 03/29/21 08/07/25 PRN #90 caps ibuprofen 600 mg tablet 600 mg PO TID PRN pain #30 tabs 03/29/21 08/07/25 albuterol sulfate 90 mcg/actuation 1 - 2 puff inhalation Q4-6H PRN ##1 06/10/24 08/07/25 aerosol inhaler (ProAir HFA) venlafaxine 225 mg tablet,extended 225 mg PO DAILY #90 tabs 08/26/24 08/07/25 release 24 hr atorvastatin 40 mg tablet See Rx Instructions .Route 10/07/24 08/07/25 .COMPLEX #90 tabs hydrochlorothiazide 25 mg tablet 25 mg PO QAM #90 tab-caps 11/05/24 08/07/25 trazodone 100 mg tablet 200 mg (2 x 100 mg) PO HS PRN 06/25/25 08/07/25 insomnia #180 tab-caps lisinopril 5 mg tablet See Rx Instructions .Route 07/05/25 08/07/25 .COMPLEX #90 tabs lidocaine 5 % topical patch 1 patch topical DAILY #30 ea 08/07/25 Previous Rx's ?Medication ?Instructions ?Recorded acetaminophen 500 mg capsule 1,000 mg (2 x 500 mg) PO Q8H PRN 03/29/21 PRN #90 caps ibuprofen 600 mg tablet 600 mg PO TID PRN pain #30 tabs 03/29/21 albuterol sulfate 90 mcg/actuation 1 - 2 puff inhalation Q4-6H PRN ##1 06/10/24 aerosol inhaler (ProAir HFA) venlafaxine 225 mg tablet,extended 225 mg PO DAILY #90 tabs 08/26/24 release 24 hr atorvastatin 40 mg tablet See Rx Instructions .Route 10/07/24 .COMPLEX #90 tabs hydrochlorothiazide 25 mg tablet 25 mg PO QAM #90 tab-caps 11/05/24 trazodone 100 mg tablet 200 mg (2 x 100 mg) PO HS PRN 06/25/25 insomnia #180 tab-caps lisinopril 5 mg tablet See Rx Instructions .Route 07/05/25 .COMPLEX #90 tabs lidocaine 5 % topical patch 1 patch topical DAILY #30 ea 08/07/25 Allergies Allergy/AdvReac Type Severity Reaction Status Date / Time bupropion HCl (From AdvReac Intermediate Agitation, Verified 08/07/25 11:05 Wellbutrin) nausea General Stated Complaint: Fall/Non TraumaCriteria WANDA: 3 Review of Systems All systems reviewed & are unremarkable except as noted in HPI and below Constitutional Constitutional: Denies chills, Denies fever(s) and Denies weakness Cardiovascular Cardiovascular: Reports chest pain and Denies dyspnea Respiratory Respiratory: Denies cough and Denies dyspnea Gastrointestinal Gastrointestinal: Denies abdominal pain, Denies nausea and Denies vomiting Neurologic Neurologic: Denies weakness Exam Const General: no acute distress Orientation: alert HENMT Head: normal to inspection Ears: external ears normal General nose exam: external nose normal Mouth: moist mucous membranes Eyes General: appearance normal, both eyes and all related structures Neck Neck: normal visual inspection Chest Chest: no crepitus and tenderness Resp Effort & Inspection: normal respiratory effort and able to speak in complete sentences Auscultation: clear to auscultation bilaterally Cardio Rate: regular rate Skin General skin exam: no rashes or lesions noted Neuro General: patient alert and patient oriented x3 Extrem General: normal to inspection Psych Mental Status: mental status grossly normal Course Vital Signs Vital signs: Vital Signs Temperature 36.7 C 08/07/25 11:01 Pulse 94 H 08/07/25 11:01 Respiratory Rate 16 08/07/25 11:01 Blood Pressure 139/84 08/07/25 11:01 Pulse Oximetry 95 08/07/25 11:01 Temperature 36.7 C 08/07/25 11:01 Temperature Source Oral 08/07/25 11:01 Pulse 94 H 08/07/25 11:01 Respiratory Rate 16 08/07/25 11:01 Blood Pressure 139/84 08/07/25 11:01 Blood Pressure Position Sitting 08/07/25 11:01 Pulse Oximetry 95 08/07/25 11:01 Oxygen Delivery Method Room Air 08/07/25 11:01 Oxygen Flow Rate 0 08/07/25 11:01 Pain Level 7 08/07/25 11:01 Medical Decision Making 59-year-old female with a history of COPD/asthma, hypertension who comes in with right-sided rib pain after falling yesterday. She says she was finishing up at work and that was water on the floor causing her to slip and fall forward and hit her right anterior chest on a shelf. Did not hit her head or have loss of consciousness. Denies any nausea or vomiting, headache, neck pain, back pain, extremity pain, abdominal pain. She has tenderness in the 3rd and 4th ribs in the right lateral clavicular line. No crepitus. Clear lung sounds. I suspect rib contusion versus fracture will x-rays to further evaluate. Patient stable, awaiting virtual radiology read. Advised patient that if it is negative likely a rib contusion and will provide her lidocaine patch prescription. Advised to follow-up with PCP. Also discussed return precaution indications Patient eloped prior to the read coming back which finally came back as being negative. She was given verbal discharge instructions. She had medical decision making capacity did not feel she required a call to come back to the ER. Differential Diagnosis Differential Diagnosis: Rib fracture, rib contusion, pneumothorax [facility] All Active Problems (Updated 08/07/25 @ 12:37 by Suresh Hylton MD) Contusion of rib on right side (Acute) Other specified anxiety disorders (Acute) Anxiety disorder, unspecified (Acute) COPD (chronic obstructive pulmonary disease) (Chronic) Depression (Chronic) COPD exacerbation (Acute) Tear of lateral meniscus of right knee (Acute) Right knee pain (Acute) Right ankle sprain (Acute) Arthritis of carpometacarpal (CMC) joint of left thumb (Chronic) Injected: 12/21/2019; Trapezial Resection: 05/10/2020 Asthma (Chronic) Anxiety and depression (Chronic) Essential hypertension (Chronic 08/31/16) Other and unspecified hyperlipidemia (Chronic 09/28/16) 07/2019 labs: LDL >190 --> started high intensity statin Insomnia (Chronic 08/31/16) Tobacco use disorder (Chronic) Medical History Respiratory failure COVID-19 (~01/2021) Hyperplastic colon polyp De Quervain's tenosynovitis, left Surgical History History of section x3 in 1986, 1989, & 1992 at [place] [facility] History of appendectomy (~1990) Status post arthroscopy of left shoulder (03/29/21) s/p distal clavicle excision, extensive debridement, biceps tenodesis, acromioplasty Hysterectomy, Total Abdominal (06/02/08) Dr. Nisa Orellana. For chronic pelvic pain & dysmenorrhea. Endometriosis surgery x2 Dr. Perrin Cholecystectomy Family History Mother Arthritis Mental disorder Anxiety Father , [place] at age 40. Myocardial infarction Sister Substance abuse H/o heroin abuse Sister Mental disorder Depression Grandmother Colon cancer Grandmother , at age 70. Diabetes Breast cancer Social History (Updated 08/26/24 @ 16:25 by Erica Fajardo NP) Smoking/Tobacco Use Status: Former Tobacco Use tobacco type: cigarettes Quit Date: 06/01/24 Smoking risk assessment performed?: Yes Alcohol Intake: current Alcohol Intake frequency: 0-2 drinks per day Alcohol type: wine Drug use: Never Substance use type: does not use Adopted: No Caregiver/Support person: No Foster care: No Household members: significant other and children Housing: house Number of Children: 3 number of grandchildren: 2 Communication Needs: None Education Level: college Do you need help understanding health information?: Never current occupation: [employer] WORK[employer] Pets and animals: Yes Pets and animals: cat(s), dog(s) and bird(s) Sexually active: Yes Do you think of yourself as: straight/heterosexual Current gender identity: female What is your relationship status?: living with partner How often do you talk on the phone with friends or family?: three or more times per week How often do you get together with friends or relatives?: once per week Do you belong to any clubs or organized social groups?: no Panel score (0-1 are the most socially isolated patients): 2 What type of physical activity do you participate in: walking Duration: 15-30 minutes/day Frequency: 3-4 times per week Ibeth/Yarsani: Hinduism Special ibeth needs: No Seatbelt use: always Drive intox or ride w/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
[2025-08-07] MEDS: Lidocaine 5% Patch 1 PATCH TP (11:26)
[2025-08-07] MEDS: Ibuprofen 600 MG TAB PO (11:26)
--- NOTE | 2025-08-07 11:48 | DI.RAD_ITS ---
Exam(s) XR RIBS RT W PA LAT CHEST CLINICAL HISTORY: right sided chest pain s/p fall. COMPARISON: CR,XR XR CHEST 2V PA LATERAL from 06/07/2024 TECHNIQUE:: PA and lateral views of the chest and four views of the right ribs were performed. FINDINGS: LUNGS:Clear. No pleural abnormality seen. HEART: Normal size. MEDIASTINUM: Normal. BONES: No displaced rib fracture is seen. No bony destructive lesion is seen. IMPRESSION: 1. Unremarkable radiographic appearance of the right ribs. 2. No acute pulmonary findings. The preliminary [facility] report was reviewed.
[2025-08-07 12:41] VITALS: BP 117/81; PULSE 79; RESP 16; O2SAT 100
--- NOTE | 2025-08-07 13:03 | DI.[facility]_ITS ---
PROCEDURE INFORMATION: Exam: XR Right Ribs Exam date and time: 08/07/2025 11:39 AM Age: 59 years old Clinical indication: Injury or trauma; Blunt trauma (contusions or hematomas); Rib area; Injury details: Fall on sink. RT lower ant rib pain. Bb placed on site of pain TECHNIQUE: Imaging protocol: Radiologic exam of the right ribs. Views: 2 views. COMPARISON: CR XR CHEST 2V PA LATERAL 06/07/2024 12:28 PM FINDINGS: Bones/joints: Normal. Soft tissues: Normal. IMPRESSION: No acute findings. PROCEDURE INFORMATION: Exam: XR Chest Exam date and time: 08/07/2025 11:39 AM Age: 59 years old Clinical indication: Injury or trauma; Blunt trauma (contusions or hematomas); Rib area; Injury details: Fall on sink. RT lower ant rib pain. Bb placed on site of pain TECHNIQUE: Imaging protocol: Radiologic exam of the chest. Views: 2 views. COMPARISON: CR XR CHEST 2V PA LATERAL 06/07/2024 12:28 PM FINDINGS: Lungs: Unremarkable. No consolidation. Pleural spaces: Unremarkable. No pleural effusion. No pneumothorax. Heart/Mediastinum: Unremarkable. No cardiomegaly. Bones/joints: Moderate degenerative disease of bilateral acromioclavicular joints. Organs: There has been a cholecystectomy. IMPRESSION: No acute cardiopulmonary process. Dictated and Authenticated by: Zak Ornelas MD. Orderin Warner Prince MD
== END 2025-08-07 13:01 | disposition home or self-care (01) ==
PROVIDERS: Emergency Provider Emergency Medicine; PCP Nurse Practitioner Adult Health
DX: S29.8XXA Other specified injuries of thorax, initial encounter (principal); W01.198A Fall on same level from slipping, tripping and stumbling with subsequent striking against other object, initial encounter; Y99.0 Civilian activity done for income or pay
CPT/HCPCS: 99283 ×2; 71046; 71100